=== PATIENT | female | born 1955 | race Caucasian/White ===

== ENCOUNTER 2017-09-30 12:50 | Outpatient (CLI) | payer OTHER ==
[2017-09-30 18:08] LABS: BASOPHILS # (AUTO) 0.1 10^3/uL (0.0-0.1); EOSINOPHILS # (AUTO) 0.2 10^3/uL (0.0-0.7); EOSINOPHILS % (AUTO) 2.3 %; HCT - HEMATOCRIT 45.8 % (37.0-47.0); MEAN CORPUSCULAR HEMOGLOBIN 29.1 pg (27.0-31.0); MEAN CORPUSCULAR HGB CONC 32.7 g/dL (32.0-36.0); MEAN CORPUSCULAR VOLUME 88.9 fL (81.0-99.0); MEAN PLATELET VOLUME 6.9 fL (7.9-10.8); MONOCYTES # (AUTO) 0.7 10^3/uL (0.0-1.0); MONOCYTES % (AUTO) 9.3 %; NEUTROPHILS # (AUTO) 5.7 10^3/uL (1.5-6.6); NEUTROPHILS % (AUTO) 74.4 %; NUCLEATED RED BLOOD CELLS AUTO 0.1 /100WBC; RED BLOOD COUNT 5.15 10^6/uL (4.20-5.40); RED CELL DISTRIBUTION WIDTH 14.4 % (12.0-15.0); UNCORRECTED WHITE BLOOD COUNT 7.6 x10^3/uL; WHITE BLOOD COUNT 7.6 x10^3/uL (4.8-10.8)
[2017-09-30 18:38] LABS: THYROID STIMULATING HORMONE 3.46 uIU/mL (0.34-5.60)
[2017-09-30 18:39] LABS: ALBUMIN/GLOBULIN RATIO 1.1 (1.0-2.2); BILIRUBIN,TOTAL 0.2 mg/dL (0.2-1.0); BUN - BLOOD UREA NITROGEN 20 mg/dL (6-20); CALCIUM 8.8 mg/dL (8.5-10.3); CARBON DIOXIDE - CO2 29 mmol/L (21-32); CHLORIDE 100 mmol/L (101-111); CHOL/HDL RATIO 5.8 (<4.4); CHOLESTEROL 244 mg/dL; CREATININE 0.9 mg/dL (0.4-1.0); GFR - MDRD 63 (>89); GLUCOSE 101 mg/dL (70-100); HDL CHOLESTEROL 42 mg/dL; IRON 69 ug/dL (28-170); LDL/HDL RATIO 3.5 (<4.4); POTASSIUM 3.8 mmol/L (3.5-5.0); SODIUM 137 mmol/L (135-145); TOTAL IRON BINDING CAPACITY 489 ug/dL (250-450); TOTAL PROTEIN 6.8 g/dL (6.7-8.2); TRANSFERRIN 349 mg/dL (192-382); TRIGLYCERIDES 276 mg/dL; VLDL CHOLESTEROL 55 mg/dL
[2017-09-30 18:43] LABS: FERRITIN 45.5 ng/mL (11.0-306.8)
== END 2017-09-30 12:51 | disposition home or self-care (01) ==
LOC: LAB.F 12:50
PROVIDERS: ATTEND Physician Assistant Medical
DX: Z00.00 Encounter for general adult medical examination without abnormal findings (principal); E55.9 Vitamin D deficiency, unspecified; E61.1 Iron deficiency; D64.9 Anemia, unspecified; E03.9 Hypothyroidism, unspecified
CPT/HCPCS: 36415; 80053; 80061; 82306; 82728; 83540; 84443; 84466; 85025

== ENCOUNTER 2019-01-25 09:14 | Outpatient (CLI) | payer OTHER ==
[2019-01-25 17:40] LABS: BASOPHILS % (AUTO) 1.3 %; EOSINOPHILS # (AUTO) 0.1 10^3/uL (0.0-0.7); EOSINOPHILS % (AUTO) 3.9 %; HGB - HEMOGLOBIN 14.3 g/dL (12.0-16.0); LYMPHOCYTES # (AUTO) 0.7 10^3/uL (1.5-3.5); LYMPHOCYTES % (AUTO) 19.9 %; MEAN CORPUSCULAR HEMOGLOBIN 29.3 pg (27.0-31.0); MEAN CORPUSCULAR HGB CONC 32.6 g/dL (32.0-36.0); MEAN CORPUSCULAR VOLUME 89.8 fL (81.0-99.0); MONOCYTES # (AUTO) 0.4 10^3/uL (0.0-1.0); MONOCYTES % (AUTO) 10.5 %; NEUTROPHILS # (AUTO) 2.2 10^3/uL (1.5-6.6); NEUTROPHILS % (AUTO) 64.4 %; PLT - PLATELET COUNT 314 10^3/uL (130-450); RED BLOOD COUNT 4.88 10^6/uL (4.20-5.40); RED CELL DISTRIBUTION WIDTH 14.5 % (12.0-15.0); WHITE BLOOD COUNT 3.5 x10^3/uL (4.8-10.8)
[2019-01-25 18:12] LABS: ALBUMIN 3.2 g/dL (3.2-5.5); ALBUMIN/GLOBULIN RATIO 1.1 (1.0-2.2); BILIRUBIN,TOTAL 0.6 mg/dL (0.2-1.0); CALCIUM 8.5 mg/dL (8.5-10.3); CREATININE 0.8 mg/dL (0.4-1.0)
== END 2019-01-25 09:15 | disposition home or self-care (01) ==
LOC: LAB.F 09:14
PROVIDERS: ATTEND Physician Assistant Medical
DX: E03.9 Hypothyroidism, unspecified (principal); D64.9 Anemia, unspecified
CPT/HCPCS: 36415; 80053; 84443; 85025

== ENCOUNTER 2019-02-27 07:37 | Outpatient (CLI) | payer OTHER | END 2019-02-27 07:38 | disposition critical access hospital (66) | LOC: EMS 07:37 | PROVIDERS: ATTEND Surgery | DX: R10.9 Unspecified abdominal pain (principal); R11.0 Nausea; R14.0 Abdominal distension (gaseous) | CPT/HCPCS: A0425; A0427 ==

== ENCOUNTER 2019-02-27 08:14 | Observation (INO) | payer OTHER ==
[2019-02-27 08:36] LABS: BASOPHILS % (AUTO) 0.4 %; EOSINOPHILS % (AUTO) 0.4 %; HGB - HEMOGLOBIN 12.4 g/dL (12.0-16.0); LYMPHOCYTES # (AUTO) 0.7 10^3/uL (1.5-3.5); LYMPHOCYTES % (AUTO) 7.5 %; MEAN CORPUSCULAR HEMOGLOBIN 29.4 pg (27.0-31.0); MEAN CORPUSCULAR HGB CONC 32.9 g/dL (32.0-36.0); MEAN CORPUSCULAR VOLUME 89.6 fL (81.0-99.0); MEAN PLATELET VOLUME 6.5 fL (7.9-10.8); MONOCYTES # (AUTO) 0.5 10^3/uL (0.0-1.0); MONOCYTES % (AUTO) 5.8 %; NEUTROPHILS # (AUTO) 7.5 10^3/uL (1.5-6.6); NEUTROPHILS % (AUTO) 85.9 %; PLT - PLATELET COUNT 343 10^3/uL (130-450); RED BLOOD COUNT 4.21 10^6/uL (4.20-5.40); RED CELL DISTRIBUTION WIDTH 13.8 % (12.0-15.0); WHITE BLOOD COUNT 8.7 x10^3/uL (4.8-10.8)
[2019-02-27 08:57] LABS: ALBUMIN 2.7 g/dL (3.2-5.5); ALBUMIN/GLOBULIN RATIO 0.8 (1.0-2.2); BILIRUBIN,TOTAL 0.3 mg/dL (0.2-1.0); CALCIUM 8.3 mg/dL (8.5-10.3); CREATININE 0.9 mg/dL (0.4-1.0); TOTAL PROTEIN 5.9 g/dL (6.7-8.2)
--- NOTE | 2019-02-27 09:05 | ED Physician Documentation ---
PD HPI ABD PAIN - Stated complaint Stated Complaint: ABD PX - Chief complaint Chief Complaint: Abd Pain - History obtained from History obtained from: Patient - History of Present Illness Timing - onset: Today (With abdominal distention, pain and vomiting.), How many days ago (She had had several days of Crohn's type symptoms with some cramping pain in the lower abdomen, loose to watery stool over baseline and some blood in her stool. She states that was occurring for several days and was actually improved yesterday. She then had the general abdominal pain and distention today.) Timing - duration: Days (1) Timing - details: Abrupt onset, Still present Quality: Aching, Fullness/distended, Pain Location: All over / everywhere Associated symptoms: Nausea, Vomiting, Hematochezia (For several days mildly), Loss of appetite. No: Near syncope / syncope Similar symptoms before: Diagnosis (current symptoms today are similar to prior SBO years ago.) Recently seen: Not recently seen (She states have been doing pretty well recently with just the mesalamine for her Crohn's.) Review of Systems Constitutional: reports: Fatigue. denies: Fever, Chills, Myalgias Nose: denies: Rhinorrhea / runny nose, Congestion Throat: denies: Sore throat Cardiac: denies: Chest pain / pressure Respiratory: denies: Dyspnea, Cough GI: reports: Abdominal Pain, Abdominal Swelling, Nausea, Vomiting, Diarrhea, Bloody / black stool. denies: Constipation, Hematemesis : denies: Dysuria, Frequency Skin: denies: Rash, Lesions Musculoskeletal: reports: Back pain (chronic) Neurologic: reports: Generalized weakness. 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 Her bushel worker that steroids are okay.) GI: Crohn's disease - Past Surgical History Past Surgical History: Yes HEENT: Tonsil/Adenoidectomy - Present Medications Home Medications: Ambulatory Orders Medication Instructions Recorded Confirmed Amitriptyline [Elavil] 10 mg PO QPM 02/27/19 02/27/19 Gabapentin 100 mg PO 02/27/19 Levothyroxine [Synthroid] 50 mcg PO QDAC 02/27/19 02/27/19 Mesalamine [Lialda] 1.2 gm PO 02/27/19 - Allergies Allergies/Adverse Reactions: Allergies Allergy/AdvReac Type Severity Reaction Status Date / Time codeine AdvReac Intermediate Nausea Verified 02/27/19 08:24 - Social History Does the pt smoke?: No Smoking Status: Never smoker Does the pt drink ETOH?: No - Immunizations Immunizations are current?: Yes PD ED PE NORMAL - Vitals Vital signs reviewed: Yes - General General: Alert and oriented X 3, Well developed/nourished, Other (She appears uncomfortable with abdominal distention and nausea. She is having generalized abdominal pain with tenderness.) - HEENT HEENT: Pharynx benign - Neck Neck: Supple, no meningeal sign, No adenopathy - Cardiac Cardiac: RRR, No murmur - Respiratory Respiratory: Clear bilaterally - Abdomen Abdomen: No organomegaly, Other (Bowel sounds are generally hyperactive [place] cially in the mid abdomen. She has moderate distention with tenderness in the mid abdomen as well. There is tenderness to percussion and some slight rebound tenderness.) - Female Female : Deferred - Rectal Rectal: Deferred - Back Back: No CVA TTP - Derm Derm: Warm and dry. No: Normal color (pale) - Extremities Extremities: No deformity, No tenderness to palpate, Normal ROM s pain, No edema, No calf tenderness / cord - Neuro Neuro: Alert and oriented X 3, No motor deficit, Normal speech Results - Vitals Vitals: Vital Signs - 24 hr 02/27/19 02/27/19 02/27/19 08:21 09:42 11:23 Temperature 36.2 C L 36.2 C L Heart Rate 58 L 64 58 L Respiratory 22 14 18 Rate Blood Pressure 106/53 L 98/55 L 103/64 O2 Saturation 100 97 96 02/27/19 13:07 Temperature 36.8 C Heart Rate 60 Respiratory 15 Rate Blood Pressure 113/62 O2 Saturation 99 Oxygen O2 Source Room air - Labs Labs: Laboratory Tests 02/27/19 02/27/19 02/27/19 08:20 08:20 12:05 WBC 8.7 RBC 4.21 Hgb 12.4 Hct 37.8 MCV 89.6 MCH 29.4 MCHC 32.9 RDW 13.8 Plt Count 343 MPV 6.5 L Neut # (Auto) 7.5 H Lymph # (Auto) 0.7 L [place] # (Auto) 0.5 Eos # (Auto) 0.0 Baso # (Auto) 0.0 Absolute Nucleated RBC 0.00 Nucleated RBC % 0.0 Sodium 138 Potassium 3.6 Chloride 101 Carbon Dioxide 28 Anion Gap 9.0 BUN 15 Creatinine 0.9 Estimated GFR (MDRD) 63 L Glucose 167 H Calcium 8.3 L Total Bilirubin 0.3 AST 46 H ALT 78 H Alkaline Phosphatase 206 H Total Protein 5.9 L Albumin 2.7 L Globulin 3.2 Albumin/Globulin Ratio 0.8 L Lipase 44 Urine Color YELLOW Urine Clarity CLEAR Urine pH 7.5 Ur Specific [place] 1.010 Urine Protein NEGATIVE Urine Glucose (UA) NEGATIVE Urine Ketones NEGATIVE Urine Occult Blood NEGATIVE Urine Nitrite NEGATIVE Urine Bilirubin NEGATIVE Urine Urobilinogen 0.2 (NORMAL) Ur Leukocyte Esterase NEGATIVE Ur Microscopic Review NOT INDICATED Urine Culture Comments NOT INDICATED PD MEDICAL DECISION MAKING - ED course Complexity details: d/w garden consultant (I talked with Dr. Villa who is the patient's bushel worker. He states steroids are appropriate to use. On an outpatient basis he would start her at 40 mg of prednisone tapering down to off over the course of 2-3 weeks at 5 mg intervals. He did not see the a value and having her in [place] versus our hospital regarding the bowel obstruction.), other (Consulted Dr. Huitron on-call for surgery regarding the bowel obstruction. He refers it to medicine and he will consult on the case.)
[2019-02-27] MEDS ORDERED: SODIUM CHLORIDE 0.9% 1,000 ML IV ONE (09:46)
[2019-02-27] MEDS ORDERED: ONDANSETRON 4 MG/2 ML VIAL IVP STA ×2 (09:46→11:50)
[2019-02-27] MEDS ORDERED: MORPHINE 10 MG/ML VIAL IVP STA (09:47)
[2019-02-27] MEDS ORDERED: FAMOTIDINE 20 MG/2 ML VIAL IVP STA (09:48)
[2019-02-27] MEDS ORDERED: IOVERSOL 320 100 ML VIAL IVP ONE ×2 (09:57→16:57)
--- NOTE | 2019-02-27 11:16 | CT Report ---
Reason: abd distension and pain; concern for SBO Procedure Date: 02/27/2019 Accession Number: [id number] / [id number] Procedure: CT - Abdomen/Pelvis W CPT Code: FULL RESULT: EXAM: CT ABDOMEN AND PELVIS EXAM DATE: 02/27/2019 10:21 AM. CLINICAL HISTORY: Abdominal distension and pain; concern for small bowel obstruction (SBO). History of Crohn's disease. COMPARISONS: None. TECHNIQUE: Routine helical CT imaging was performed through the abdomen and pelvis. IV contrast: OPTI 320 100 mL. Enteric contrast: No. Reconstructions: Coronal and sagittal. In accordance with CT protocol optimization, one or more of the following dose reduction techniques were utilized for this exam: automated exposure control, adjustment of mA and/or KV based on patient size, or use of iterative reconstructive technique. FINDINGS: Lung Bases: Bibasilar scar/atelectasis. Heart is upper normal in size. Small hiatal hernia. Liver: Mild fatty liver. Patent portal vein. Small volume of perihepatic free fluid. Gallbladder/Bile Ducts: Calcified gallstones present no pericholecystic edema. No biliary ductal dilatation. Spleen: Normal. Pancreas: Normal. Adrenal Glands: Normal. Kidneys: Kidneys enhance symmetrically. No hydronephrosis. No nephrolithiasis. Peritoneal Cavity/Bowel: Stomach is mildly to moderately distended and unremarkable. Proximal small bowel is not significantly dilated. There is a segment of small bowel in the left mid upper abdomen focally dilated with mesenteric edema with tight angulation of distal and proximal small bowel loops b both of which are tightly angulated angulated with the dilated bowel loops splayed in the mid abdomen with mesenteric edema focally seen. There is a slightly more distal small bowel anastomosis. There is thickening, enhancement and nodularity of mid and distal ileum extending to the ileocecal valve with some enhancement and thickening of segments of the colon particularly proximally, likely due to patient's history of Crohn's disease. There is adjacent mild mesenteric edema. There is is free fluid along the liver and in the right lower quadrant. No free air is identified. Absent appendix. No diverticulitis. Pelvic Organs: Small to moderate volume pelvic free fluid. Calcified uterine myoma noted extending into the right pelvis. No pelvic adenopathy. Urinary bladder is unremarkable. Vasculature: Vascular calcifications. No aneurysm. Bones: Degenerative changes of the lower thoracic and lumbar spine. Degenerative changes. Other: Lumbar facet arthropathy. Grade 1 anterolisthesis of L4 on L5. Degenerative changes of both hip joints. IMPRESSION: 1. Small bowel obstruction largely focally present in the left mid upper abdomen involving focal mid proximal small bowel loops with an appearance most likely representing a closed loop obstruction. 2. Mucosal thickening and enhancement of the mid distal ileum and portions of the proximal colon likely related to the patient's history of Crohn's disease. Adjacent inflammatory changes noted. No adjacent fluid collections. 3. Small volume of perihepatic, right lower quadrant, and pelvic free fluid. 4. Cholelithiasis. No CT evidence of cholecystitis. [facility] The call report notification system was initiated by Dr. Volodymyr Herrera at 11:06 AM on 02/27/2019. The above call report findings were discussed with Juan Chua by Dr. Volodymyr Herrera at 11:11 AM on 02/27/2019.
[2019-02-27] MEDS ORDERED: fentaNYL 100 MCG/2 ML VIAL IVP STA (11:50)
[2019-02-27 12:09] LABS: BILIRUBIN,URINE NEGATIVE (NEGATIVE); GLUCOSE, URINE (UA) NEGATIVE (NEGATIVE); KETONES,URINE (UA) NEGATIVE (NEGATIVE); LEUKOCYTE ESTERASE, URINE NEGATIVE (NEGATIVE); NITRITE,URINE NEGATIVE (NEGATIVE); OCCULT BLOOD,URINE NEGATIVE (NEGATIVE); PH,URINE 7.5 PH (5.0-7.5); PROTEIN,URINE NEGATIVE (NEGATIVE); UROBILINOGEN,URINE 0.2 (NORMAL) E.U./dL (NORMAL)
[2019-02-27 12:14] LABS: CLARITY,URINE CLEAR (CLEAR)
[2019-02-27] MEDS ORDERED: LIDOCAINE VISCOUS 2% 15 ML UDC MM STA (12:48)
[2019-02-27] MEDS ORDERED: SODIUM CHLORIDE FLUSH 0.9% 10 ML SYRINGE IVP PRN (13:11)
[2019-02-27] MEDS ORDERED: ONDANSETRON 4 MG/2 ML VIAL IVP PRN (13:11)
[2019-02-27] MEDS ORDERED: PROCHLORPERAZINE 10 MG/2 ML VIAL IVP PRN (13:11)
[2019-02-27] MEDS ORDERED: MORPHINE 2 MG/ML SYRINGE IVP PRN (13:11)
--- NOTE | 2019-02-27 13:21 | HISTORY & PHYSICAL EXAMINATION ---
Chief Complaint - Chief Complaint Chief Complaint: Nausea episodic vomiting with acute onset of bloating, crampy abd pain Abdominal Pain HPI - Admitted From Admitted from: ED - History Obtained From Records Reviewed: RN notes reviewed, Old records reviewed History obtained from: Patient - History of Present Illness HPI Comment/Other: Kellee Mcgill he is a pleasant 63-year-old with a history of chronic Crohn's disease for which she sees a Dr. Villa her primarygastroenterologist in [place] for which she is on chronic as a thio purine and was recently getting over her previous "flare" of Crohn's disease where she had stool in her blood with crampy abdominal pain with acute onset of bloating nausea and episodic vomiting. Patient presented with an acute closed-loop small bowel obstruction to the mid proximal small bowel loops in the left mid upper abdomen seen on CT abdomen pelvis in the emergency department in addition cholelithiasis without acute cholecystitis was seen in the setting of elevated transaminitis. Patient in addition had mid distal ileum and proximal colon mucosal thickening consistent with Crohn's disease. General surgery was consulted 's office who advised on NG tube placement. Primary steam and power superintendent Dr. Villa in [place] advised on placing patient on bowel rest IV steroids and IV fluids and likely continuing on a prednisone taper for approximately 4 weeks. Patient on labs appear to be with no anemias with okay CBC and lites were within normal limits with good creatinine function renal function and hyperglycemia seen. PMH/PSH - Past Medical History GI: positive: Crohn's disease - Past Surgical History HEENT: positive: Tonsil/Adenoidectomy Social & Family Hx - Social History Does the pt smoke?: No Smoking Status: Never smoker Does the pt drink ETOH?: No Meds/Allgy - Home Medications Home Medications: Ambulatory Orders Medication Instructions Recorded Confirmed Amitriptyline [Elavil] 10 mg PO QPM 02/27/19 02/27/19 Gabapentin 100 mg PO 02/27/19 Levothyroxine [Synthroid] 50 mcg PO QDAC 02/27/19 02/27/19 Mesalamine [Lialda] 1.2 gm PO 02/27/19 - Allergies Allergies/Adverse Reactions: Allergies Allergy/AdvReac Type Severity Reaction Status Date / Time codeine AdvReac Intermediate Nausea Verified 02/27/19 08:24 Review of Systems - All Other Systems All Other Systems: reports: Reviewed and negative Prior Level of Functionality: Patient is with good functional capacity and performs home ADLs well Exam - Vital Signs Reviewed Vital Signs: Yes Vital Signs: Vital Signs x48h Temp Pulse Resp BP Pulse Ox 02/27/19 13:07 36.8 C 60 15 113/62 99 02/27/19 11:23 58 L 18 103/64 96 02/27/19 09:42 36.2 C L 64 14 98/55 L 97 02/27/19 08:21 36.2 C L 58 L 22 106/53 L 100 - Physical Exam General Appearance: positive: No acute distress, Alert Eyes Bilateral: positive: Normal inspection, PERRL, EOMI ENT: positive: ENT inspection nml, Pharynx nml, Dry mucous membranes Neck: positive: Nml inspection, Thyroid nml, No JVD, Trachea midline Respiratory: positive: Chest non-tender, No respiratory distress Cardiovascular: positive: Regular rate & rhythm, No murmur, No gallop Peripheral Pulses: positive: 2+ Abdomen: positive: No organomegaly, Tenderness (Lower quadrants), Guarding, Abn ml bowel sounds, Other (Tympany on disc and distention) Skin: positive: Color nml, No rash, Warm Extremities: positive: Non-tender, Full ROM, Nml appearance Neurologic/Psychiatric: positive: Oriented x3, CN's nml (2-12) Results - Lab Results Lab results reviewed: Yes Fish Bones: 02/27/19 08:20 02/27/19 08:20 Other Lab Results: Lab Results x24hrs 02/27/19 02/27/19 02/27/19 Range/Units 12:05 08:20 08:20 WBC 8.7 (4.8-10.8) x10^3/uL RBC 4.21 (4.20-5.40) 10^6/uL Hgb 12.4 (12.0-16.0) g/dL Hct 37.8 (37.0-47.0) % MCV 89.6 (81.0-99.0) fL MCH 29.4 (27.0-31.0) pg MCHC 32.9 (32.0-36.0) g/dL RDW 13.8 (12.0-15.0) % Plt Count 343 (130-450) 10^3/uL MPV 6.5 L (7.9-10.8) fL Neut # (Auto) 7.5 H (1.5-6.6) 10^3/uL Lymph # (Auto) 0.7 L (1.5-3.5) 10^3/uL [place] # (Auto) 0.5 (0.0-1.0) 10^3/uL Eos # (Auto) 0.0 (0.0-0.7) 10^3/uL Baso # (Auto) 0.0 (0.0-0.1) 10^3/uL Absolute Nucleated RBC 0.00 x10^3/uL Nucleated RBC % 0.0 /100WBC Sodium 138 (135-145) mmol/L Potassium 3.6 (3.5-5.0) mmol/L Chloride 101 (101-111) mmol/L Carbon Dioxide 28 (21-32) mmol/L Anion Gap 9.0 (6-13) BUN 15 (6-20) mg/dL Creatinine 0.9 (0.4-1.0) mg/dL Estimated GFR (MDRD) 63 L (>89) Glucose 167 H (70-100) mg/dL Calcium 8.3 L (8.5-10.3) mg/dL Total Bilirubin 0.3 (0.2-1.0) mg/dL AST 46 H (10-42) IU/L ALT 78 H (10-60) IU/L Alkaline Phosphatase 206 H (42-121) IU/L Total Protein 5.9 L (6.7-8.2) g/dL Albumin 2.7 L (3.2-5.5) g/dL Globulin 3.2 (2.1-4.2) g/dL Albumin/Globulin Ratio 0.8 L (1.0-2.2) Lipase 44 (22-51) U/L Urine Color YELLOW Urine Clarity CLEAR (CLEAR) Urine pH 7.5 (5.0-7.5) PH Ur Specific [place] 1.010 (1.002-1.030) Urine Protein NEGATIVE (NEGATIVE) mg/dL Urine Glucose (UA) NEGATIVE (NEGATIVE) mg/dL Urine Ketones NEGATIVE (NEGATIVE) mg/dL Urine Occult Blood NEGATIVE (NEGATIVE) Urine Nitrite NEGATIVE (NEGATIVE) Urine Bilirubin NEGATIVE (NEGATIVE) Urine Urobilinogen 0.2 (NORMAL) (NORMAL) E.U./dL Ur Leukocyte Esterase NEGATIVE (NEGATIVE) Ur Microscopic Review NOT INDICATED Urine Culture Comments NOT INDICATED - Diagnostic Imaging Results Diagnostic Imaging Results: positive: Final report reviewed - EKG Results EKG Interpreted Independently: No Sepsis Event Note (H) - Evaluation Current Stage of Sepsis: Ruled out Impression/Plan - Problem List Problem List: 1. Acute small bowel obstruction -CT abdomen pelvis confirms a small bowel obstruction in the left mid upper abdomen involving mid proximal small bowel loop with appearance likely representing a closed loop obstruction. In addition patient has cholelithiasis without evidence of cholecystitis. Mucosal thickening in the mid distal ileum/proximal colon in keeping with Crohn's disease. We will continue with IV steroids, bowel rest, pain control IV fluids. Will perform a Gastrografin challenge and evaluate for the need for surgery. At this time patient was unable to have an NG tube placed after 2 attempts. We will reevaluate the need for NG tube placement with intermittent suction. 2. Acute on chronic Crohn's disease with recent flare -IV steroids for now. Patient was on mesalamine in the past. As a fire print was discontinued due to immunosuppression and herpes zoster's with associated myelitis and has post-herpetic neuralgia at this time. Neurontin is also been held since its oral. If NG tube is placed and may be we can dispense per NG tube. 3. Transaminitis secondary to inflammatory response from Crohn's -Likely as a response of inflammatory from her Crohn's, CRP to follow, lipase was normal, there is cholecystolithiasis present on CT abdomen pelvis with no evidence of acute cholecystitis. IV steroids should be alleviated somewhat. 4. Postherpetic neuralgia -Patient unable to have oral medications dispensed due to n.p.o. status. We will treat with IV fentanyl as needed 5. Abdominal pain secondary to above -IV fentanyl, bowel rest, IV fluids 6. Hyperglycemia likely secondary to steroids -Hemoglobin A1c to follow, Expected elevated sugars while being on IV Solu- Medrol 7. DVT/GI ppx. -She will be on IV Protonix, Heparin Lovenox held due to recent bleeding, SCD boots only. CODE STATUS: Full code Core Measures - Anticipated LOS I expect patient to be DC'd or transferred within 96 hours.: Yes - DVT/VTE - Prophylaxis VTE/DVT Device ordered at admit?: Yes VTE/DVT Prophylaxis med ordered at admit?: Yes - Stroke - Rehab Assessment Rehab services assessment to be ordered?: No Not Ordered - Medical Reason: Not indicated - AMI - Statin at Admit Aspirin Prescribed on Admit: No Not Ordered - Medical Reason: Contraindicated (Bloody stools with history of Crohn's disease)
[2019-02-27] MEDS ORDERED: fentaNYL 250 MCG/5 ML VIAL IVP PRN (13:52)
[2019-02-27] MEDS ORDERED: LORazepam 2 MG/ML VIAL IVP PRN (13:52)
[2019-02-27] MEDS: SODIUM CHLORIDE FLUSH 0.9% 10 ML SYRINGE IVP SCH ×2 (14:08→23:39)
[2019-02-27] MEDS ORDERED: SODIUM CHLORIDE FLUSH 0.9% 10 ML SYRINGE ONE (14:09)
[2019-02-27] MEDS ORDERED: fentaNYL 100 MCG/2 ML VIAL IVP PRN (14:10)
[2019-02-27] MEDS: methylPREDNISolone SUCCINATE 40 MG/ML VIAL IVP SCH ×2 (14:24→22:11)
[2019-02-27] MEDS: LACTATED RINGERS 1,000 ML IV SCH ×2 (14:56→22:11)
[2019-02-27] MEDS: PANTOPRAZOLE 40 MG VIAL IVP SCH (15:18)
--- NOTE | 2019-02-27 15:46 | XRAY Report ---
Reason: NG tube placed Procedure Date: 02/27/2019 Accession Number: [id number] / [id number] Procedure: XR - Chest 1 View X-Ray CPT Code: 98009 FULL RESULT: EXAM: CHEST RADIOGRAPHY EXAM DATE: 02/27/2019 03:21 PM. CLINICAL HISTORY: NG tube placed. COMPARISON: None. TECHNIQUE: 1 view. FINDINGS: Lungs/Pleura: No focal opacities evident. No pleural effusion. No pneumothorax. Mediastinum: Within exam limitations, the cardiomediastinal contour is normal. Other: The enteric tube terminates below the diaphragm with the sidehole projecting over the left upper quadrant and the distal tip inferior of the confines of the radiograph. IMPRESSION: Appropriate NG tube positioning. [facility]
--- NOTE | 2019-02-27 18:31 | XRAY Report ---
Reason: SMALL BOWEL OBST - GASTROGRAFIN CHALLENGE Procedure Date: 02/27/2019 Accession Number: [id number] / [id number] Procedure: XR - No-Charge 1V Abdomen CPT Code: 23845 FULL RESULT: EXAM: ABDOMEN RADIOGRAPHY EXAM DATE: 02/27/2019 03:35 PM. CLINICAL HISTORY: SMALL BOWEL obstruction - GASTROGRAFIN CHALLENGE. COMPARISON: ABDOMEN 1 VIEW 02/27/2019 4:22 PM. TECHNIQUE: 1 view. FINDINGS AND IMPRESSION: There is a feeding tube in the stomach. Contrast has been given through the feeding tube and there is contrast seen in the stomach. There is a nonobstructive bowel gas pattern. 3 moderate sized gallstones are noted. Small amount of contrast could be in the proximal duodenum. [facility]
--- NOTE | 2019-02-27 20:17 | XRAY Report ---
Reason: SMALL BOWEL OBST - GASTROGRAFIN CHALLENGE Procedure Date: 02/27/2019 Accession Number: [id number] / [id number] Procedure: XR - No-Charge 1V Abdomen CPT Code: 73965 FULL RESULT: EXAM: ABDOMEN RADIOGRAPHY EXAM DATE: 02/27/2019 04:51 PM. CLINICAL HISTORY: SMALL BOWEL obstruction - GASTROGRAFIN CHALLENGE. COMPARISON: CT abdomen pelvis 02/27/19. TECHNIQUE: 2 views. FINDINGS AND IMPRESSION: Nasogastric tube with the tip in the body of the stomach. Nonobstructive nonspecific bowel gas pattern. There is still excretion of contrast seen from both kidneys with mild persistent nephrograms, where renal insufficiency could be present. Correlate with the creatinine. There is contrast in the bladder. Three moderate sized gallstones. Heterogeneous calcifications seen in the right side of the bladder. [facility]
--- NOTE | 2019-02-27 21:21 | XRAY Report ---
Reason: SMALL BOWEL OBST - GASTROGRAFIN CHALLENGE Procedure Date: 02/27/2019 Accession Number: [id number] / [id number] Procedure: XR - No-Charge 1V Abdomen CPT Code: 21075 FULL RESULT: EXAM: ABDOMEN RADIOGRAPHY EXAM DATE: 02/27/2019 08:59 PM. CLINICAL HISTORY: SMALL BOWEL obstruction - GASTROGRAFIN CHALLENGE. COMPARISON: ABDOMEN 1 VIEW 02/27/2019 4:34 PM. TECHNIQUE: 2 views. FINDINGS: Nasogastric tube is again seen in the distal stomach. Nonobstructive bowel gas pattern. Gastrografin oral contrast is seen throughout the colon. No dilated bowel loops are seen. No evidence for bowel obstruction. IMPRESSION: Gastrografin oral contrast is seen throughout the colon. No dilated bowel loops are seen. No evidence for bowel obstruction. [facility]
[2019-02-27] MEDS ORDERED: ACETAMINOPHEN 325 MG TABLET PO PRN (21:38)
[2019-02-27] MEDS ORDERED: ACETAMINOPHEN 1,000 MG/100 ML 100 ML IV PRN (21:50)
--- NOTE | 2019-02-27 22:04 | CONSULTATION NOTE ---
Referring Provider Name of Referring Provider:: Dr. Juan Chua Consult Date: 02/27/19 Chief Complaint - Chief Complaint Chief Complaint: Abdominal pain History of Present Illness - Admitted From Admitted From:: [facility] ED - History Obtained From Records Reviewed: Yes History obtained from: Patient, chart, and Dr. Chua Exam Limitations: None - History of Present Illness HPI Comment/Other: This very pleasant 63 year old female is evaluated in room 2303 at [facility] ICU at the request of Dr. Juan Chua. The patient has had the diagnosis of Crohns disease since 8th grade and is being followed by her physical therapy coordinator at [facility] for this. 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 She has colonoscopies every 2 years due to the increased risk of malignancy. She states that she feels much better now with NG in place. She has had previous operations for bowel obstruction bu the nature of those operations is unknown. I am called to evaluate her abdominal pain and nausea after a CT scan showed the possibility of a "closed loop small bowel obstruction." History - Past Medical History Cardiovascular: reports: None Respiratory: reports: None Neuro: reports: Other GI: reports: Crohn's disease - Past Surgical History HEENT: reports: Tonsil/Adenoidectomy Meds/Allgy - Home Medications Home Medications: Ambulatory Orders Medication Instructions Recorded Confirmed Amitriptyline [Elavil] 10 mg PO QPM 02/27/19 02/27/19 Gabapentin 100 mg PO DAILY 02/27/19 02/27/19 Gabapentin 300 mg PO DAILY PM 02/27/19 02/27/19 Levothyroxine [Synthroid] 50 mcg PO QDAC 02/27/19 02/27/19 Mesalamine [Lialda] 1.2 gm PO 02/27/19 - Allergies Allergies/Adverse Reactions: Allergies Allergy/AdvReac Type Severity Reaction Status Date / Time codeine AdvReac Intermediate Nausea Verified 02/27/19 08:24 Review of Systems - Constitutional Constitutional: denies: Fatigue, Fever, Chills, Malaise - Eyes Eyes: denies: Pain - Ears, Nose & Throat Ears, Nose & Throat: denies: Ear pain - Cardiovascular Cariovascular: denies: Irregular heart rate - Respiratory Respiratory: denies: Cough - Gastrointestinal Gastrointestinal: reports: Abdominal pain (Markedly improved.), Nausea - Musculoskeletal Musculoskeletal: denies: Muscle pain, Back pain - Integumentary Integumentary: denies: Rash - Neurological Neurological: denies: General weakness, Focal weakness - Psychiatric Psychiatric: denies: Depression Exam - Vital Signs Reviewed Vital Signs: Yes Vital Signs: Vital Signs x48h Temp Pulse Pulse Pulse Resp BP BP 02/27/19 20:25 36.4 C L 68 16 109/49 L 02/27/19 18:28 02/27/19 18:25 65 11 L 107/53 L 02/27/19 17:50 02/27/19 17:00 58 L 12 02/27/19 16:55 57 L 13 02/27/19 16:50 60 14 02/27/19 16:45 56 L 14 02/27/19 16:40 64 16 02/27/19 16:35 63 15 02/27/19 16:30 67 16 02/27/19 16:25 54 L 12 02/27/19 16:20 55 L 11 L 02/27/19 16:15 54 L 11 L 02/27/19 16:10 59 L 15 02/27/19 16:05 59 L 12 02/27/19 16:00 61 58 L 9 L 02/27/19 15:55 58 L 15 02/27/19 15:50 60 13 02/27/19 15:45 57 L 11 L 02/27/19 15:44 58 L 12 02/27/19 15:40 60 10 L 02/27/19 15:35 63 11 L 02/27/19 15:30 60 11 L 02/27/19 15:25 58 L 10 L 02/27/19 15:20 62 18 02/27/19 15:15 58 L 12 02/27/19 15:10 57 L 13 02/27/19 15:05 61 20 02/27/19 15:00 63 18 02/27/19 14:55 61 16 02/27/19 14:50 61 15 02/27/19 14:46 67 22 137/65 H 02/27/19 14:45 67 16 02/27/19 14:40 64 14 02/27/19 14:35 59 L 15 02/27/19 14:31 63 17 02/27/19 14:30 36.1 C L 63 64 15 110/67 02/27/19 14:29 63 13 02/27/19 14:25 58 L 17 02/27/19 14:20 61 17 02/27/19 14:17 63 14 133/67 H 02/27/19 14:16 65 16 02/27/19 14:15 71 19 02/27/19 14:10 61 16 02/27/19 14:05 59 L 15 02/27/19 14:00 59 L 16 BP Pulse Ox 02/27/19 20:25 94 02/27/19 18:28 95 02/27/19 18:25 93 02/27/19 17:50 97 02/27/19 17:00 02/27/19 16:55 02/27/19 16:50 02/27/19 16:45 02/27/19 16:40 02/27/19 16:35 02/27/19 16:30 02/27/19 16:25 02/27/19 16:20 02/27/19 16:15 02/27/19 16:10 02/27/19 16:05 02/27/19 16:00 93 02/27/19 15:55 02/27/19 15:50 02/27/19 15:45 02/27/19 15:44 137/65 H 96 02/27/19 15:40 02/27/19 15:35 02/27/19 15:30 02/27/19 15:25 02/27/19 15:20 02/27/19 15:15 02/27/19 15:10 02/27/19 15:05 02/27/19 15:00 02/27/19 14:55 02/27/19 14:50 02/27/19 14:46 02/27/19 14:45 02/27/19 14:40 02/27/19 14:35 02/27/19 14:31 02/27/19 14:30 133/67 H 94 02/27/19 14:29 02/27/19 14:25 02/27/19 14:20 02/27/19 14:17 02/27/19 14:16 02/27/19 14:15 02/27/19 14:10 02/27/19 14:05 04/08/19 14:00 - Physical Exam General Appearance: positive: No acute distress Eyes Bilateral: positive: No lid inflammation, Conjunctivae nml, No scleral icterus ENT: positive: No signs of dehydration Neck: positive: Trachea midline Respiratory: positive: Chest non-tender, No respiratory distress, Breath sounds nml Cardiovascular: positive: Regular rate & rhythm Abdomen: positive: Non-tender, Nml bowel sounds, No distention Skin: positive: Color nml Extremities: positive: Non-tender, Nml appearance Neurologic/Psychiatric: positive: Oriented x3, Motor nml, Sensation nml, Mood/affect nml Conclusion/Plan - Diagnosis Diagnosis: Abdominal pain - Plan Plan: Obtain a gastrograffin challenge study now that an NG tube has been placed. In a [facility] review it was shown that if there is gastrograffin in the colon within 48 hours that there is a 98% likelihood that surgical intervention will not be necessary. My exam combined with the lack of a leukocytosis speaks against an acute surgical problem. Will follow. Agree with addition of steroids to treatment and taper should be at her physical therapy coordinator's opinion/direction. I asked the patient to please let us know if we can make her stay at [facility] more comfortable to please let us know. 45 minutes of [id number] time spent with the patient, the majority of which was spent in discussion, coordination of care, and completion of the requisite paperwork Dragon disclaimer: This document was created in part using voice recognition technology. Because of the inherent limitations of the system ([employer]'s Dragon Dictate user manual states that the licensee understands that speech recognition is a statistical process and that recognition errors are inherent in the process), occasional same sounding word substitutions and grammatical errors do occur and persist despite proofreading. Please read this document for context. - Lab Results Lab results reviewed: Yes Fish Bones: 02/27/19 08:20 02/27/19 08:20 - Diagnostic Imaging Results Diagnostic Imaging Results: positive: Final report reviewed, Read independently Diagnostic Imaging Results Comments: My reading of the CT scan (and I am no radiologist) is less impressive as I do not appreciate a complete or concerning obstruction.
[2019-02-28] MEDS: SODIUM CHLORIDE FLUSH 0.9% 10 ML SYRINGE IVP SCH (05:17)
[2019-02-28] MEDS: PANTOPRAZOLE 40 MG VIAL IVP SCH (05:17)
[2019-02-28] MEDS: methylPREDNISolone SUCCINATE 40 MG/ML VIAL IVP SCH ×2 (05:17→14:26)
[2019-02-28] MEDS: LACTATED RINGERS 1,000 ML IV SCH (08:05)
[2019-02-28] MEDS ORDERED: ENOXAPARIN 40 MG/0.4 ML SYRINGE SUBQ SCH (09:00)
[2019-02-28] MEDS ORDERED: POLYETHYLENE GLYCOL 3350 17 GM PACKET PO SCH (09:00)
[2019-02-28] MEDS ORDERED: LACTATED RINGERS 1,000 ML IV SCH (10:16)
[2019-02-28] MEDS ORDERED: SUCRALFATE 1 GM/10 ML UDC PO PRN (14:14)
--- NOTE | 2019-02-28 16:33 | Discharge Plan ---
Discharge Plan Disposition: Home, Self Care Condition: Stable Prescriptions: predniSONE [Prednisone] 10 mg PO DAILY #70 tablet Diet: Soft Activity Restrictions: Activity as Tolerated Shower Restrictions: No Driving Restrictions: No Instruction Topics: Obstruction Sm Bowel, ED Abdominal Pain Adhesions, Disease Crohn Dc Additional Instructions or Follow Up instructions: You were here for a partial bowel obstruction, related to your prior abdominal surgery and inflammatory bowel disease. You are being prescribed steroids to taper down over 1 month. Resume your other pre-hospital medications. You should see your PCP or Label Designer in 5-10 days in hospital follow- up. Speak to your provider with any questions or refills. No Smoking: If you smoke, Please STOP! Call for help. Follow-up with: Juliana Handy PA-C [Primary Care Provider] -
[2019-02-28 16:52] VITALS: BP 118/62
--- NOTE | 2019-02-28 16:54 | DISCHARGE SUMMARY ---
Discharge Summary Admit Date: 02/27/19 Discharge Date: 02/28/19 Discharging Provider: Chrissy Campbell MD Primary Care Provider: Juliana Handy Code Status: Attempt Resuscitation Condition at Discharge: Stable Discharge Disposition: 01 Home, Self Care - DIAGNOSES Admission Diagnoses: SBO Hx of Crohns dis Dehydration Hypothyroidism Discharge Diagnoses with Status of Each Condition: 1) SBO - She had bowel rest, ng tube decompression by suxction, iv hydration and a Gasgtrograffin challenge, which did pass into the colon, by imaging and this helped her achieve a (loose) bowel movement (several times). 2) Crohn's dosease - This was managed as recommended by her Independent Producer. She received iv Solumedrol 40 mg tid and then was sent home with Prednsione, with a slow tapering schedule over 1 month: 40 mg x 1 week, 30 mg x 1 week, 20 mg x 1 week, 10 mg x 5 days, and 5 mg for 5 days. 3) Dehydration - She was on iv fluids at 125 cc/hr for a day, then transitioned to clear liquids then a soft diet, which she tolerated. She was advised to advance her diet as tolerated and to stay hydrated. 4) Post-herpetic neuralgia. She was not on her po meds for this for 1 day, then advised to resume them at discharge. 5) Hypothyroidism. She was not on her po meds for this for 1 day, then advised to resume them at discharge. - HPI History of Present Illness: This is a 63-year-old female with a history of chronic Crohn's disease for which she sees a Dr. Villa her primary Independent Producer in [place] and she was recently getting over her previous "flare" of Crohn's disease. Here she presented with crampy abdominal pain with acute onset of bloating nausea and episodic vomiting. Patient had an acute closed-loop small bowel obstruction to the mid proximal small bowel loops in the left mid upper abdomen seen on CT abdomen pelvis in the emergency department in addition cholelithiasis without acute cholecystitis was seen in the setting of elevated transaminitis. Patient also had mid distal ileum and proximal colon mucosal thickening consistent with Crohn's disease. General surgery was consulted and advised NG tube placement. Her primary oracle consultant Dr. Villa in [place] advised on placing patient on bowel rest, IV steroids and IV fluids and continuing on a Prednisone taper for approximately 4 weeks. - CONSULTS | PROCEDURES Consultations: General Surgery Procedures: None - HOSPITAL COURSE Hospital Course: As above - ALLERGIES Allergies/Adverse Reactions: Allergies Allergy/AdvReac Type Severity Reaction Status Date / Time codeine AdvReac Intermediate Nausea Verified 02/27/19 08:24 - MEDICATIONS Home Medications: Ambulatory Orders Medication Instructions Recorded Confirmed Amitriptyline [Elavil] 10 mg PO QPM 02/27/19 02/27/19 Gabapentin 100 mg PO DAILY 02/27/19 02/27/19 Gabapentin 300 mg PO DAILY PM 02/27/19 02/27/19 Levothyroxine [Synthroid] 50 mcg PO QDAC 02/27/19 02/27/19 Mesalamine [Lialda] 1.2 gm PO 02/27/19 predniSONE [Prednisone] 10 mg PO DAILY #70 tablet 02/28/19 - PHYSICAL EXAM AT DISCHARGE General Appearance: positive: Alert Eyes Bilateral: positive: Normal inspection, PERRL ENT: positive: No signs of dehydration Neck: positive: Nml inspection Respiratory: positive: No respiratory distress Cardiovascular: positive: Regular rate & rhythm, No murmur Abdomen: positive: Non-tender, Nml bowel sounds, No distention Extremities: positive: No pedal edema - LABS Result Diagrams: 02/27/19 08:20 02/27/19 08:20 - DIAGNOSTIC IMAGING Diagnostic Imaging Results: Final report reviewed - SEPSIS Current Stage of Sepsis: Ruled out - FOLLOW UP Follow Up: She was advised to see her PCP and/or Independent Producer in 5-10 days for hospital follow-up. - TIME SPENT Time Spent in Discharge (Minutes): 30
== END 2019-02-28 17:05 | disposition home or self-care (01) ==
LOC: EDUNIT# → ED 08:14 → ICU 13:11 → MS3 19:07
PROVIDERS: ADMIT Family Medicine; ATTEND Family Medicine
DX: K50.812 Crohn's disease of both small and large intestine with intestinal obstruction (principal); E86.0 Dehydration; B02.29 Other postherpetic nervous system involvement; E03.9 Hypothyroidism, unspecified; K80.20 Calculus of gallbladder without cholecystitis without obstruction; R73.9 Hyperglycemia, unspecified
CPT/HCPCS: 36415; 71045; 74177; 74250; 80053; 81003; 83690; 85025; 86141; 87150; 96361; 96374; 96375; 96376; 99284; G0378; J2060; J3010; J7120; Q9967; 74018; 81001; 87086

== ENCOUNTER 2019-03-02 14:11 | Outpatient (CLI) | payer OTHER ==
--- NOTE | 2019-03-03 15:33 | DEXA Report ---
Reason: POSTMENOPAUSAL Procedure Date: 03/02/2019 Accession Number: [id number] / [id number] Procedure: DEX - Dexa Spine and/or Hip CPT Code: FULL RESULT: EXAM: Dexa Spine and/or Hip DATE: 03/02/2019 2:49 PM CLINICAL HISTORY: POSTMENOPAUSAL TECHNIQUE: Dual energy x-ray absorptiometry (DXA) was performed on a Medius System. Regions measured are the AP Spine, femoral neck, and if needed forearm. COMPARISON: 11/05/2016 In accordance with the International Society for Clinical Densitometry (ISCD) guidelines, data from previous exams may be reanalyzed using current recommendations and techniques. This is done to allow a more accurate basis for comparison with the current study. FINDINGS: The data for the lumbar spine is as follows: BMD (g/cm/cm) T-SCORE Z-SCORE REGION L1 1.152 0.2 1.5 L2 1.157 -0.4 0.9 L3 1.100 -0.8 0.5 L4 1.104 -0.8 0.5 TOTAL 1.125 -0.5 0.8 NOTE: All evaluable vertebrae are used for classification The data for the hip is as follows: BMD (g/cm/cm) T-SCORE Z-SCORE REGION Neck 0.849 -1.4 -0.1 TOTAL 0.873 -1.1 -0.1 NOTE: The femoral neck or total proximal femur, whichever is lowest, is used for classification. DXA RESULTS SUMMARY: Spine SCAN DATE AGE BMD CHANGE VS CHANGE VS PREVIOUS PREVIOUS % [birth year]02[birth year]2019 [age] 1.125 0.050* 4.7* 11/05/2016 62.4 1.075 * Denotes significant change at the 95% confidence level. Denotes dissimilar scan types or analysis methods. DXA RESULTS SUMMARY: Hip SCAN DATE AGE BMD CHANGE VS CHANGE VS PREVIOUS PREVIOUS % [birth year]02[birth year]2019 64.7 0.873 -0.055* -5.9* 11[birth year]05/2016 62.4 0.928 * Denotes significant change at the 95% confidence level. Denotes dissimilar scan types or analysis methods. IMPRESSION: THE WHO CLASSIFICATION BASED ON THE INTERNATIONAL REFERENCE STANDARD IS OSTEOPENIA. THE FRACTURE RISK IS INCREASED. RECOMMENDATION: Patients with diagnosis of osteoporosis or osteopenia should have regular bone mineral density assessment. For those eligible for Medicare, routine testing is allowed once every 2 years. Testing frequency can be increased for patients who have rapidly progressing disease or for those who are receiving medical therapy to restore bone mass. COMMENT: World Health Organization (WHO) definitions for osteoporosis and osteopenia: NORMAL BMD: T-score at -1.0 or higher, fracture risk is low OSTEOPENIA BMD: T-score between -1.0 and -2.5, fracture risk is increased. OSTEOPOROSIS BMD: T-score at -2.5 or lower, fracture risk is high. National Osteoporosis Foundation recommends: 1. Obtain adequate dietary calcium (at least 1200 mg per day) and vitamin D (400-800 international units per day). 2. Participate, as appropriate, in regular weightbearing and muscle-strengthening exercise. 3. Avoid tobacco use and reduce alcohol and caffeine intake. 4. For more detailed information see the website at www.NOF.org.
== END 2019-03-02 14:12 | disposition home or self-care (01) ==
LOC: DI 14:11
PROVIDERS: ATTEND Physician Assistant Medical
DX: M85.89 Other specified disorders of bone density and structure, multiple sites (principal); Z78.0 Asymptomatic menopausal state
CPT/HCPCS: 77080

== ENCOUNTER 2019-05-10 09:39 | Outpatient (CLI) | payer OTHER ==
[2019-05-10 17:51] LABS: BASOPHILS % (AUTO) 0.4 %; EOSINOPHILS % (AUTO) 0.4 %; HGB - HEMOGLOBIN 10.2 g/dL (12.0-16.0); LYMPHOCYTES # (AUTO) 0.7 10^3/uL (1.5-3.5); LYMPHOCYTES % (AUTO) 6.1 %; MEAN CORPUSCULAR HEMOGLOBIN 28.7 pg (27.0-31.0); MEAN CORPUSCULAR VOLUME 99.2 fL (81.0-99.0); MEAN PLATELET VOLUME 9.3 fL (7.9-10.8); MONOCYTES # (AUTO) 0.6 10^3/uL (0.0-1.0); MONOCYTES % (AUTO) 5.4 %; NEUTROPHILS % (AUTO) 87.4 %; PLT - PLATELET COUNT 347 10^3/uL (130-450); RED BLOOD COUNT 3.55 10^6/uL (4.20-5.40); RED CELL DISTRIBUTION WIDTH 14.6 % (12.0-15.0); WHITE BLOOD COUNT 11.4 x10^3/uL (4.8-10.8)
== END 2019-05-10 09:40 | disposition home or self-care (01) ==
LOC: LAB.F 09:39
PROVIDERS: ATTEND Physician Assistant Medical
DX: E03.9 Hypothyroidism, unspecified (principal); D72.819 Decreased white blood cell count, unspecified; E55.9 Vitamin D deficiency, unspecified
CPT/HCPCS: 36415; 82306; 84443; 85025

== ENCOUNTER 2019-05-16 18:06 | Outpatient (CLI) | payer OTHER | END 2019-05-16 18:07 | disposition critical access hospital (66) | LOC: EMS 18:06 | PROVIDERS: ATTEND Surgery | DX: K92.1 Melena (principal); R42 Dizziness and giddiness | CPT/HCPCS: A0425; A0427 ==

== ENCOUNTER 2019-05-16 18:45 | Inpatient (IN) | payer OTHER ==
[2019-05-16 19:20] LABS: RED CELL DISTRIBUTION WIDTH 14.6 % (12.0-15.0)
--- NOTE | 2019-05-16 19:20 | ED Physician Documentation ---
PD HPI ABD PAIN - Stated complaint Stated Complaint: GI BLEED - Chief complaint Chief Complaint: Abd Pain - History obtained from History obtained from: Patient - History of Present Illness Timing - onset: Today (63-year-old woman with Crohn's disease, followed by Dr. Joe Villa in [place]. She is currently on mesalamine and she is also on a long prednisone taper that she is been on for the last month, currently 30 mg a day. Since early this morning she had recurrent episodes of significant dark red blood per rectum without abdominal pain or nausea.) Review of Systems Ten Systems: 10 systems reviewed and negative Constitutional: reports: Reviewed and negative Throat: reports: Reviewed and negative GI: denies: Abdominal Swelling, Nausea, Vomiting Neurologic: reports: Other (On and off she is been feeling weak and dizzy and presyncopal today.) PD PAST MEDICAL HISTORY - Past Medical History Past Medical History: Yes Cardiovascular: None Respiratory: None Neuro: Other Endocrine/Autoimmune: Other GI: Crohn's disease Other Past Medical History: hypothyroid herpetic neuralgia - Past Surgical History Past Surgical History: Yes General: Bowel surgery HEENT: Tonsil/Adenoidectomy - Present Medications Home Medications: Ambulatory Orders Medication Instructions Recorded Confirmed Amitriptyline [Elavil] 10 mg PO QPM 02/27/19 02/27/19 Gabapentin 100 mg PO DAILY 02/27/19 02/27/19 Gabapentin 300 mg PO DAILY PM 02/27/19 02/27/19 Levothyroxine [Synthroid] 50 mcg PO QDAC 02/27/19 02/27/19 Mesalamine [Lialda] 1.2 gm PO 02/27/19 predniSONE [Prednisone] 10 mg PO DAILY #70 tablet 02/28/19 - Allergies Allergies/Adverse Reactions: Allergies Allergy/AdvReac Type Severity Reaction Status Date / Time codeine AdvReac Intermediate Nausea Verified 02/27/19 08:24 - Social History Does the pt smoke?: No Smoking Status: Never smoker Does the pt drink ETOH?: No - Family History Family history: reports: Non contributory - Immunizations Immunizations are current?: Yes - POLST Patient has POLST: No PD ED PE NORMAL - Vitals Vital signs reviewed: Yes - General General: Alert and oriented X 3, No acute distress - HEENT HEENT: PERRL, EOMI - Neck Neck: Supple, no meningeal sign, No bony TTP - Cardiac Cardiac: RRR, No murmur - Respiratory Respiratory: No respiratory distress, Clear bilaterally - Abdomen Abdomen: Normal bowel sounds, Soft, Non tender - Back Back: No CVA TTP, No spinal TTP - Derm Derm: Normal color, Warm and dry - Extremities Extremities: No edema, No calf tenderness / cord - Neuro Neuro: Alert and oriented X 3, Normal speech - Psych Psych: Normal mood, Normal affect Results - Vitals Vitals: Vital Signs - 24 hr 05/16/19 05/16/19 05/16/19 18:48 18:52 21:15 Temperature 36.1 C L Heart Rate 75 74 71 Respiratory 18 18 Rate Blood Pressure 114/61 112/59 L 110/57 L O2 Saturation 98 100 05/16/19 21:27 Temperature 36.6 C Heart Rate Respiratory Rate Blood Pressure O2 Saturation Oxygen O2 Source Room air - Labs Labs: Laboratory Tests 05/16/19 05/16/19 05/16/19 19:10 19:10 19:10 WBC 10.0 RBC 2.60 L Hgb 7.3 L Hct 25.5 L MCV 98.1 MCH 28.1 MCHC 28.6 L RDW 14.6 Plt Count 329 MPV 9.1 Neut # (Auto) 7.3 H Lymph # (Auto) 1.5 [place] # (Auto) 0.9 Eos # (Auto) 0.1 Baso # (Auto) 0.0 Absolute Nucleated RBC 0.00 Nucleated RBC % 0.0 Manual Slide Review Indicated Platelet Estimate NORMAL (130-450,000) Platelet Morphology NORMAL APPEARANCE RBC Morph Micro Appear 1+ BASO STIPPLING PT 11.6 INR 1.0 Sodium Potassium Chloride Carbon Dioxide Anion Gap BUN Creatinine Estimated GFR (MDRD) Glucose Calcium Total Bilirubin AST ALT Alkaline Phosphatase Total Protein Albumin Globulin Albumin/Globulin Ratio Lipase Blood Type O POSITIVE Antibody Screen NEGATIVE 05/16/19 19:10 WBC RBC Hgb Hct MCV MCH MCHC RDW Plt Count MPV Neut # (Auto) Lymph # (Auto) [place] # (Auto) Eos # (Auto) Baso # (Auto) Absolute Nucleated RBC Nucleated RBC % Manual Slide Review Platelet Estimate Platelet Morphology RBC Morph Micro Appear PT INR Sodium 139 Potassium 3.7 Chloride 102 Carbon Dioxide 26 Anion Gap 11.0 BUN 31 H Creatinine 1.0 Estimated GFR (MDRD) 56 L Glucose 158 H Calcium 8.1 L Total Bilirubin 0.3 AST 12 ALT 14 Alkaline Phosphatase 44 Total Protein 4.7 L Albumin 2.6 L Globulin 2.1 Albumin/Globulin Ratio 1.2 Lipase 46 Blood Type Antibody Screen PD MEDICAL DECISION MAKING - ED course ED course: 63-year-old woman with history of Crohn's disease presents with dark red blood per rectum, her hemodynamics are normal but she has a significant drop in her H&H, her usual H&H is around 14, last week it was 10 and now it is 7.3. I spoke with Dr. Us director content marketing for [facility] gastroenterology who felt that given the lack of abdominal pain and cramping and lack of diarrhea, it may not even be a Crohn's flare, might just be a diverticular bleed. She recommends watchful waiting with trending of her H&H's. She does not recommend increasing her steroids or any other specific medications for her Crohn's at this point. She did not feel the patient necessarily needed to be transferred to a higher level of care. Spoke with Dr. Higinio San for consultation and he will follow. Spoke with Dr. Han for admission at 9:30 PM. Departure - Departure Disposition: 66 [facility] DC/Xfer Clinical Impression: Lower GI bleed Condition: Fair
[2019-05-16 19:28] LABS: BASOPHILS % (AUTO) 0.2 %; EOSINOPHILS # (AUTO) 0.1 10^3/uL (0.0-0.7); EOSINOPHILS % (AUTO) 1.3 %; HGB - HEMOGLOBIN 7.3 g/dL (12.0-16.0); LYMPHOCYTES # (AUTO) 1.5 10^3/uL (1.5-3.5); LYMPHOCYTES % (AUTO) 15.1 %; MEAN CORPUSCULAR HEMOGLOBIN 28.1 pg (27.0-31.0); MEAN CORPUSCULAR HGB CONC 28.6 g/dL (32.0-36.0); MEAN CORPUSCULAR VOLUME 98.1 fL (81.0-99.0); MEAN PLATELET VOLUME 9.1 fL (7.9-10.8); MONOCYTES # (AUTO) 0.9 10^3/uL (0.0-1.0); MONOCYTES % (AUTO) 9.3 %; NEUTROPHILS # (AUTO) 7.3 10^3/uL (1.5-6.6); NEUTROPHILS % (AUTO) 73.4 %; PLT - PLATELET COUNT 329 10^3/uL (130-450)
[2019-05-16 19:38] LABS: PT - PROTHROMBIN TIME 11.6 secs (9.9-12.6)
[2019-05-16 19:40] LABS: ALBUMIN 2.6 g/dL (3.2-5.5); ALBUMIN/GLOBULIN RATIO 1.2 (1.0-2.2); BILIRUBIN,TOTAL 0.3 mg/dL (0.2-1.0); CALCIUM 8.1 mg/dL (8.5-10.3); TOTAL PROTEIN 4.7 g/dL (6.7-8.2)
[2019-05-16 20:02] LABS: PLATELET ESTIMATE, MANUAL NORMAL (130-450,000) (NORMAL); PLATELET MORPHOLOGY NORMAL APPEARANCE (NORMAL)
[2019-05-16] MEDS ORDERED: PROCHLORPERAZINE 10 MG/2 ML VIAL IVP PRN (21:37)
[2019-05-16] MEDS ORDERED: ONDANSETRON ODT 4 MG TABLET TL PRN (21:37)
[2019-05-16 22:02] LABS: HB2 TOTAL 7.6 g/dL; HEMOGLOBIN A1C 0.36 g/dL; HEMOGLOBIN A1C % 6.5 % (4.6-6.2)
[2019-05-16] MEDS: MESALAMINE 400 MG CAPSULE PO SCH (22:28)
[2019-05-16] MEDS: DEXTROSE 5%-0.9% NACL 1,000 ML IV SCH (22:37)
--- NOTE | 2019-05-16 22:49 | HISTORY & PHYSICAL EXAMINATION ---
Chief Complaint - Chief Complaint Chief Complaint: Dark bright red blood per rectum mixed with stool, weakness GI Bleed Admit Template - Admitted From Admitted from: ED - History Obtained From Records Reviewed: RN notes reviewed History obtained from: Patient Exam limitations: No limitations - History of Present Illness HPI Comment/Other: 63-year-old woman w/ Pmhx of Hypothyroidism, Chronic steroid use with a steroid taper for treatment Crohn's disease, followed by Dr. Joe Villa in [place]. She is currently on mesalamine and she is also on a long prednisone taper that she is been on for the last month, currently 30 mg a day. Since early this morning she had recurrent episodes of significant dark red blood per rectum without abdominal pain or nausea. Patient was admitted for a bowel obstruction in February 2019. On examination patient was hemodynamically stable, afebrile, did not complain of crampy abdominal pain, no diarrhea. Patient presented with a hemoglobin of 7.3 which on 05/10 patient's hemoglobin was 10.2 and on 03/10 hemoglobin of 14 g/dl. Patient also had mild Acute renal insuff secondary to GI losses of blood with a cr 1.0 w/ baseline cr ranging 0.7-0.9, was on all her home meds without any use of NSAIDs or ETOh use. Dr. Us from [facility] was called by ED and informed of clinical presentation and there was recommendations for observation with H/H monitoring alongside keeping same dose of 30 mg po prednisone along withe her mesalamine at 1.2 g daily. Possible diverticular bleed was enter tained, for which Dr. San was called and consulted as well for possible endoscopy. PMH/PSH - Past Medical History Cardiovascular: positive: None Respiratory: positive: None Neuro: positive: Other Endocrine/Autoimmune: positive: Other GI: positive: Crohn's disease Other Past Medical History: hypothyroid herpetic neuralgia - Past Surgical History General: positive: Bowel surgery HEENT: positive: Tonsil/Adenoidectomy Social & Family Hx - Social History Does the pt smoke?: No Smoking Status: Never smoker Does the pt drink ETOH?: No - POLST Patient has POLST: No Meds/Allgy - Home Medications Home Medications: Ambulatory Orders Medication Instructions Recorded Confirmed Amitriptyline [Elavil] 10 mg PO QPM 02/27/19 02/27/19 Gabapentin 100 mg PO DAILY 02/27/19 02/27/19 Gabapentin 300 mg PO DAILY PM 02/27/19 02/27/19 Levothyroxine [Synthroid] 50 mcg PO QDAC 02/27/19 02/27/19 Mesalamine [Lialda] 1.2 gm PO 02/27/19 predniSONE [Prednisone] 10 mg PO DAILY #70 tablet 02/28/19 - Allergies Allergies/Adverse Reactions: Allergies Allergy/AdvReac Type Severity Reaction Status Date / Time codeine AdvReac Intermediate Nausea Verified 02/27/19 08:24 Review of Systems - All Other Systems All Other Systems: reports: Reviewed and negative Prior Level of Functionality: Patient's functional capacity as well as home ADLs adequate Exam - Vital Signs Reviewed Vital Signs: Yes Vital Signs: Vital Signs x48h Temp Pulse Pulse Resp BP BP Pulse Ox 05/16/19 22:34 36.2 C L 63 106/54 L 05/16/19 21:27 36.6 C 05/16/19 21:15 71 110/57 L 100 05/16/19 18:52 74 18 112/59 L 05/16/19 18:48 36.1 C L 75 18 114/61 98 - Physical Exam General Appearance: positive: No acute distress, Alert Eyes Bilateral: positive: Normal inspection, PERRL, EOMI, Other (Mild conjunctival pallor) ENT: positive: ENT inspection nml, Pharynx nml, No signs of dehydration Neck: positive: Nml inspection, Thyroid nml, No JVD, Trachea midline. negative: Thyromegaly Respiratory: positive: Chest non-tender, No respiratory distress, Breath sounds nml Cardiovascular: positive: Regular rate & rhythm, No murmur, No gallop Peripheral Pulses: positive: 2+ Abdomen: positive: Non-tender, No organomegaly, Nml bowel sounds, No distention. negative: Tenderness Back: positive: Nml inspection Skin: positive: No rash, Warm, Pallor. negative: Skin rash Extremities: positive: Non-tender, Full ROM, Nml appearance Neurologic/Psychiatric: positive: Oriented x3, CN's nml (2-12) Results - Lab Results Lab results reviewed: Yes Fish Bones: 05/16/19 19:10 05/16/19 19:10 Other Lab Results: Lab Results x24hrs 0605/16/19 05/16/19 Range/Units 20:42 19:10 19:10 WBC (4.8-10.8) x10^3/uL RBC (4.20-5.40) 10^6/uL Hgb (12.0-16.0) g/dL Hct (37.0-47.0) % MCV (81.0-99.0) fL MCH (27.0-31.0) pg MCHC (32.0-36.0) g/dL RDW (12.0-15.0) % Plt Count (130-450) 10^3/uL MPV (7.9-10.8) fL Neut # (Auto) (1.5-6.6) 10^3/uL Lymph # (Auto) (1.5-3.5) 10^3/uL [place] # (Auto) (0.0-1.0) 10^3/uL Eos # (Auto) (0.0-0.7) 10^3/uL Baso # (Auto) (0.0-0.1) 10^3/uL Absolute Nucleated RBC x10^3/uL Nucleated RBC % /100WBC Manual Slide Review Platelet Estimate (NORMAL) Platelet Morphology (NORMAL) RBC Morph Micro Appear (NORMAL) PT (9.9-12.6) secs INR (0.8-1.2) Sodium 139 (135-145) mmol/L Potassium 3.7 (3.5-5.0) mmol/L Chloride 102 (101-111) mmol/L Carbon Dioxide 26 (21-32) mmol/L Anion Gap 11.0 (6-13) BUN 31 H (6-20) mg/dL Creatinine 1.0 (0.4-1.0) mg/dL Estimated GFR (MDRD) 56 L (>89) Glucose 158 H (70-100) mg/dL Glycated Hemoglobin 6.5 H (4.6-6.2) % Estim Average Glucose 140 H (70-100) Calcium 8.1 L (8.5-10.3) mg/dL Total Bilirubin 0.3 (0.2-1.0) mg/dL AST 12 (10-42) IU/L ALT 14 (10-60) IU/L Alkaline Phosphatase 44 (42-121) IU/L Total Protein 4.7 L (6.7-8.2) g/dL Albumin 2.6 L (3.2-5.5) g/dL Globulin 2.1 (2.1-4.2) g/dL Albumin/Globulin Ratio 1.2 (1.0-2.2) Lipase 46 (22-51) U/L Blood Type Cancelled Antibody Screen Cancelled Crossmatch IS Only See Detail 05/16/19 05/16/19 05/16/19 Range/Units 19:10 19:10 19:10 WBC 10.0 (4.8-10.8) x10^3/uL RBC 2.60 L (4.20-5.40) 10^6/uL Hgb 7.3 L (12.0-16.0) g/dL Hct 25.5 L (37.0-47.0) % MCV 98.1 (81.0-99.0) fL MCH 28.1 (27.0-31.0) pg MCHC 28.6 L (32.0-36.0) g/dL RDW 14.6 (12.0-15.0) % Plt Count 329 (130-450) 10^3/uL MPV 9.1 (7.9-10.8) fL Neut # (Auto) 7.3 H (1.5-6.6) 10^3/uL Lymph # (Auto) 1.5 (1.5-3.5) 10^3/uL [place] # (Auto) 0.9 (0.0-1.0) 10^3/uL Eos # (Auto) 0.1 (0.0-0.7) 10^3/uL Baso # (Auto) 0.0 (0.0-0.1) 10^3/uL Absolute Nucleated RBC 0.00 x10^3/uL Nucleated RBC % 0.0 /100WBC Manual Slide Review Indicated Platelet Estimate NORMAL (130-450,000) (NORMAL) Platelet Morphology NORMAL APPEARANCE (NORMAL) RBC Morph Micro Appear 1+ BASO STIPPLING (NORMAL) PT 11.6 (9.9-12.6) secs INR 1.0 (0.8-1.2) Sodium (135-145) mmol/L Potassium (3.5-5.0) mmol/L Chloride (101-111) mmol/L Carbon Dioxide (21-32) mmol/L Anion Gap (6-13) BUN (6-20) mg/dL Creatinine (0.4-1.0) mg/dL Estimated GFR (MDRD) (>89) Glucose (70-100) mg/dL Glycated Hemoglobin (4.6-6.2) % Estim Average Glucose (70-100) Calcium (8.5-10.3) mg/dL Total Bilirubin (0.2-1.0) mg/dL AST (10-42) IU/L ALT (10-60) IU/L Alkaline Phosphatase (42-121) IU/L Total Protein (6.7-8.2) g/dL Albumin (3.2-5.5) g/dL Globulin (2.1-4.2) g/dL Albumin/Globulin Ratio (1.0-2.2) Lipase (22-51) U/L Blood Type O POSITIVE Antibody Screen NEGATIVE Crossmatch IS Only - EKG Results EKG Interpreted Independently: No Impression/Plan - Problem List Problem List: 1. Acute symptomatic GI blood loss anemia 2. Acute renal insufficiency 3. Hx Crohns disease 4. Generalized weakness sec to above 5. Steroid induced hyperglycemia 6. Hyperthyroidism 7. Macrocytosis Plan: Admit to tele, H/H monitoring, resume taper dose prednisone at 30 mg po daily per Dr. Us who has advised on not escalating therapy, continue with mesalamine, bowel rest, clears, IVF's, Dr. San consulted. Transfuse under restrictive protocol <7 g/dl, T+CM done, A1c to follow, as well as tsh, b12, FA, iron. May need IV iron as well. Avoid nephrotoxic agents, correct lytes. Call GI at [facility] for further guidance if needed. DVT ppx with SCD's only. Code: FULL Core Measures - Anticipated LOS I expect patient to be DC'd or transferred within 96 hours.: Yes - Issues Hospital Issues and Management Plan: possible transfusions, med mgmt - DVT/VTE - Prophylaxis VTE/DVT Device ordered at admit?: Yes VTE/DVT Prophylaxis med ordered at admit?: No Not Ordered - Medical Reason: Contraindicated (GIB) - Stroke - Rehab Assessment Rehab services assessment to be ordered?: No Not Ordered - Medical Reason: Not indicated - AMI - Statin at Admit Aspirin Prescribed on Admit: No Not Ordered - Medical Reason: Not indicated
[2019-05-17 00:46] LABS: HGB - HEMOGLOBIN 6.2 g/dL (12.0-16.0)
[2019-05-17] MEDS: MESALAMINE 400 MG CAPSULE PO SCH (06:49)
[2019-05-17] MEDS: SODIUM CHLORIDE FLUSH 0.9% 10 ML SYRINGE IVP SCH ×3 (06:49→17:51)
[2019-05-17] MEDS ORDERED: PANTOPRAZOLE 40 MG VIAL IVP SCH (07:00)
[2019-05-17 07:50] LABS: HGB - HEMOGLOBIN 8.8 g/dL (12.0-16.0); MEAN CORPUSCULAR HEMOGLOBIN 27.9 pg (27.0-31.0); MEAN CORPUSCULAR HGB CONC 29.3 g/dL (32.0-36.0); MEAN CORPUSCULAR VOLUME 95.2 fL (81.0-99.0); MEAN PLATELET VOLUME 9.1 fL (7.9-10.8); RED BLOOD COUNT 3.15 10^6/uL (4.20-5.40); RED CELL DISTRIBUTION WIDTH 15.7 % (12.0-15.0); WHITE BLOOD COUNT 8.3 x10^3/uL (4.8-10.8)
[2019-05-17] MEDS ORDERED: predniSONE 10 MG TABLET PO SCH (08:00)
--- NOTE | 2019-05-17 08:06 | CONSULTATION NOTE ---
Referring Provider Name of Referring Provider:: Dr. Han Consult Date: 05/17/19 Chief Complaint - Chief Complaint Chief Complaint: GI bleed History of Present Illness - Admitted From Admitted From:: ER - History Obtained From Records Reviewed: yes History obtained from: pt, records Exam Limitations: none - History of Present Illness HPI Comment/Other: 63 yo female with Crohn's disease admitted last night with 12 hour hx of passing large amount of BRBPR associated with dizziness but no abd pain, N/V, melena, prior wt loss. She has a hx of small bowel resection x 2 approx 20 yrs ago for SBO due to Crohn's disease. She has been on medical management since and is followed by GI in [place]. She was hospitalized 2 months ago for SBO attributed to Crohn's, responded to medical management and was placed on a course of prednisone which completed one month later, followed by a similar episode of painless rectal bleeding, which stopped spontaneously and for which she was restarted on another course of prednisone, which she is still taking, along with mesalamine for her Crohn's. She reports recent onset of heartburn and indigestion over the past few weeks which has not responded well to prn OTC antacids and PPIs. No hx PUD; no prior UGI evaluations. Her last colonoscopy was 2 yrs ago and reportedly confirmed small and large bowel Crohn's disease. A CT 2 months ago showed similar findings. Neg FH CRC. Currently she feels well, with stable vs, having received 2 units of PRBCs for a hgb of 6 noted last night. There has been no further bleeding x 12 hours. 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) GI: reports: Crohn's disease Psych: reports: Other (insomnia) Other Past Medical History: hypothyroid herpetic neuralgia - Past Surgical History General: reports: Bowel surgery (small bowel resection x 2 for Crohn's) HEENT: reports: Tonsil/Adenoidectomy - Family & Social History Family History Comment/Other: neg for CRC or IBD Living arrangement: At home - Substance History Use: Uses substance without health or social issues: NONE - POLST Patient has POLST: No Meds/Allgy - Home Medications Home Medications: Ambulatory Orders Medication Instructions Recorded Confirmed Amitriptyline [Elavil] 10 mg PO QPM 04/08/19 04/08/19 Gabapentin 100 mg PO DAILY 02/27/19 02/27/19 Gabapentin 300 mg PO DAILY PM 02/27/19 02/27/19 Levothyroxine [Synthroid] 50 mcg PO QDAC 02/27/19 02/27/19 Mesalamine [Lialda] 1.2 gm PO 02/27/19 predniSONE [Prednisone] 10 mg PO DAILY #70 tablet 02/28/19 - Allergies Allergies/Adverse Reactions: Allergies Allergy/AdvReac Type Severity Reaction Status Date / Time codeine AdvReac Intermediate Nausea Verified 02/27/19 08:24 Review of Systems - Constitutional Constitutional: denies: Fatigue, Fever, Chills, Weight gain, Weight loss - Gastrointestinal Gastrointestinal: reports: Rectal bleeding, Black stools (chronically dark on iron supplements), Bloody stools, Reflux/heartburn. denies: Abdominal pain, Abdominal distention, Constipation, Diarrhea, Nausea, Vomiting, Bile emesis, [place] blood emesis, Coffee grounds emesis - Hematologic/Lymphatic Hematologic/Lymphatic: denies: Bruising, Blood clots, Bleeding tendencies - All Other Systems All Other Systems: reports: Reviewed and negative Exam - Vital Signs Reviewed Vital Signs: Yes - Physical Exam General Appearance: positive: No acute distress, Alert ENT: positive: ENT inspection nml, Pharynx nml, No signs of dehydration Neck: positive: Nml inspection, Thyroid nml, No JVD. negative: Lymphadenopathy (R), Lymphadenopathy (L) Respiratory: positive: Chest non-tender, No respiratory distress, Breath sounds nml. negative: Wheezes, Rales, Rhonchi Cardiovascular: positive: Regular rate & rhythm, No murmur, No gallop Abdomen: positive: Non-tender, No organomegaly, Nml bowel sounds, No distention, Other (well healed midline surgical scar). negative: Guarding, Splenomegaly, Mass Skin: positive: Color nml, No rash, Warm, Dry. negative: Cyanosis Extremities: positive: Non-tender, No pedal edema. negative: Calf tenderness Neurologic/Psychiatric: positive: Oriented x3 Conclusion/Plan - Diagnosis Diagnosis: 1.GI Bleed; clinically resolving; likely lower gi in nature; ddx inc ludes Crohn's disease, diverticular, angiodysplasia, doubt ischemic or infectious colitis, UGI source. 2. Recent onset of heartburn, indigestion; with steroid use and GI bleeding, ugi source such as PUD, gastritis, etc should be considered. - Plan Plan: Agree with present management. Bowel prep today for EGD/colon tomorrow. PAR conf with pt and consent obtained. Discussed with Dr. Han, who agrees. Thanks, - Lab Results Lab results reviewed: Yes Fish Bones: 05/17/19 07:42 05/16/19 19:10
[2019-05-17 08:13] LABS: ALBUMIN 2.5 g/dL (3.2-5.5); CALCIUM 7.8 mg/dL (8.5-10.3); CREATININE 0.8 mg/dL (0.4-1.0)
[2019-05-17 08:20] LABS: THYROID STIMULATING HORMONE 2.31 uIU/mL (0.34-5.60)
[2019-05-17 08:31] LABS: FOLATE 16.22 ng/mL (5.90 - >24.8)
[2019-05-17 08:58] LABS: HGB - HEMOGLOBIN 8.8 g/dL (12.0-16.0)
[2019-05-17] MEDS: PANTOPRAZOLE 40 MG VIAL IVP SCH ×2 (09:47→21:27)
[2019-05-17] MEDS: POLYETHYLENE GLYCOL 3350 17 GM PACKET PO SCH (09:48)
[2019-05-17] MEDS: predniSONE 10 MG TABLET PO SCH ×2 (12:20→18:05)
[2019-05-17] MEDS: DEXTROSE 5%-0.9% NACL 1,000 ML IV SCH (13:51)
[2019-05-17] MEDS: MESALAMINE 1.2 GM PO SCH (14:33)
[2019-05-17] MEDS: LEVOTHYROXINE 25 MCG TABLET PO SCH (14:35)
--- NOTE | 2019-05-17 15:33 | PROVIDER PROGRESS NOTE ---
Subjective - Prog Note Date Prog Note Date: 05/17/19 - Subjective Pt reports feeling: Improved Subjective: pt feel better after blood transfusion and pt walk at nurse station and hallway. pt is planned to have colonoscopy on tomorrow. Current Medications - Current Medications Current Medications: Active Medications Amitriptyline HCl (Elavil) 20 mg PO QPM [facility] Gabapentin (Neurontin) 300 mg PO QPM [facility] Gabapentin (Neurontin) 100 mg PO DAILY [facility] Dextrose/Sodium Chloride (D5ns) 1,000 mls @ 100 mls/hr IV .Q10H [facility] Last Admin: 05/17/19 13:51 Dose: 100 mls/hr Levothyroxine Sodium (Synthroid) 50 mcg PO QDAC [facility] Last Admin: 05/17/19 14:35 Dose: 50 mcg Ondansetron HCl (Zofran Odt) 4 mg TL Q6HR PRN PRN Reason: Nausea / Vomiting Pantoprazole Sodium (Protonix) 40 mg IVP BID [facility] Last Admin: 05/17/19 09:47 Dose: 40 mg Mesalamine [Lialda] (1.2 Gm Tab) 4 each PO DAILY [facility] Last Admin: 05/17/19 14:33 Dose: 4 each Polyethylene Glycol (Miralax) 17 gm PO DAILY [facility] Last Admin: 05/17/19 09:48 Dose: Not Given Prednisone (Deltasone) 15 mg PO BIDWM [facility] Last Admin: 05/17/19 12:20 Dose: 15 mg Prochlorperazine Edisylate (Compazine Inj) 10 mg IVP Q6HR PRN PRN Reason: Nausea / Vomiting Sodium Chloride (Normal Saline Flush 0.9%) 10 ml IVP PRN PRN PRN Reason: NEEDED PER PROVIDER ORDERS Sodium Chloride (Normal Saline Flush 0.9%) 10 ml IVP 0100,0900,1700 [facility] Last Admin: 05/17/19 09:48 Dose: 10 ml Sodium Sulfate/Potass Sulf/Mag Sulf (Suprep Bowel Prep Kit) 177 ml PO 1800,0500 [facility] Stop: 05/18/19 05:01 Amitriptyline [Elavil] 20 mg PO QPM 02/27/19 Gabapentin 100 mg PO DAILY 02/27/19 Gabapentin 300 mg PO QPM 02/27/19 Levothyroxine [Synthroid] 50 mcg PO QDAC 02/27/19 Mesalamine [Lialda] 4.8 gm PO DAILY 02/27/19 predniSONE [Prednisone] 15 mg PO BIDWM 05/17/19 Objective - Vital Signs/Intake & Output Reviewed Vital Signs: Yes Vital Signs: Vital Signs x48h Temp Pulse Resp BP Pulse Ox 05/17/19 12:56 36.7 C 69 16 100/61 98 05/17/19 08:00 36.7 C 73 16 103/60 98 Intake & Output: Intake & Output 05/14/19 05/15/19 05/16/19 05/17/19 23:59 23:59 23:59 23:59 Intake Total 50 2480 Balance 50 2480 - Objective General Appearance: positive: No acute distress, Alert. negative: Lethargic Eyes Bilateral: positive: Normal inspection, PERRL, No lid inflammation, Conjunctivae nml ENT: positive: ENT inspection nml, Pharynx nml, No signs of dehydration. negative: Purulent nasal drainage, Pharyngeal erythema, Oral lesions Neck: positive: Nml inspection, Thyroid nml, No JVD, Trachea midline. negative: Thyromegaly, Lymphadenopathy (R), Lymphadenopathy (L), Stiff neck, Swelling/bruising, Tracheal deviation Respiratory: positive: Chest non-tender, No respiratory distress, Breath sounds nml. negative: Wheezes, Rales, Rhonchi Cardiovascular: positive: Regular rate & rhythm, No murmur, No gallop. negative: Irregularly irregular, Extrasystoles, Tachycardia, Bradycardia, JVD present, Systolic murmur, Diastolic murmur Peripheral Pulses: 2+ Radial (R), 2+ Radial (L), 2+ Dorsalis pedis (R), 2+ Dorsalis pedis (L) Abdomen: positive: Non-tender, No organomegaly, Nml bowel sounds, No distention. negative: Tenderness, Guarding, Rebound Back: positive: Nml inspection. negative: CVA tenderness (R), CVA tenderness (L) Skin: positive: Color nml, No rash, Warm, Dry. negative: Cyanosis, Diaphoresis, Pallor Extremities: positive: Non-tender, Full ROM, Nml appearance. negative: Calf tenderness, Joint swelling, Myron's sign/cords Neurologic/Psychiatric: positive: Oriented x3, Motor nml, Sensation nml, Mood/affect nml. negative: Weakness, Sensory loss, Facial droop, Slurred/abnml speech, Depressed mood/affect - Lab Results Fish Bones: 05/17/19 08:45 05/17/19 07:42 Other Labs: Lab Results x24hrs 05/17/19 05/17/19 05/17/19 Range/Units 08:45 07:42 07:42 WBC (4.8-10.8) x10^3/uL RBC (4.20-5.40) 10^6/uL Hgb 8.8 L (12.0-16.0) g/dL Hct 29.7 L (37.0-47.0) % MCV (81.0-99.0) fL MCH (27.0-31.0) pg MCHC (32.0-36.0) g/dL RDW (12.0-15.0) % Plt Count (130-450) 10^3/uL MPV (7.9-10.8) fL Neut # (Auto) (1.5-6.6) 10^3/uL Lymph # (Auto) (1.5-3.5) 10^3/uL [place] # (Auto) (0.0-1.0) 10^3/uL Eos # (Auto) (0.0-0.7) 10^3/uL Baso # (Auto) (0.0-0.1) 10^3/uL Absolute Nucleated RBC x10^3/uL Nucleated RBC % /100WBC Manual Slide Review Platelet Estimate (NORMAL) Platelet Morphology (NORMAL) RBC Morph Micro Appear (NORMAL) PT (9.9-12.6) secs INR (0.8-1.2) Sodium 139 (135-145) mmol/L Potassium 3.9 (3.5-5.0) mmol/L Chloride 102 (101-111) mmol/L Carbon Dioxide 28 (21-32) mmol/L Anion Gap 9.0 (6-13) BUN 21 H (6-20) mg/dL Creatinine 0.8 (0.4-1.0) mg/dL Estimated GFR (MDRD) 72 L (>89) Glucose 112 H (70-100) mg/dL Glycated Hemoglobin (4.6-6.2) % Estim Average Glucose (70-100) Calcium 7.8 L (8.5-10.3) mg/dL Phosphorus 4.0 (2.5-4.6) mg/dL Iron 51 (28-170) ug/dL TIBC 367 (250-450) ug/dL % Saturation 14 L (20-50) % Transferrin 262 (192-382) mg/dL Total Bilirubin (0.2-1.0) mg/dL AST (10-42) IU/L ALT (10-60) IU/L Alkaline Phosphatase (42-121) IU/L Total Protein (6.7-8.2) g/dL Albumin 2.5 L (3.2-5.5) g/dL Globulin (2.1-4.2) g/dL Albumin/Globulin Ratio (1.0-2.2) Lipase (22-51) U/L Vitamin B12 192 (180-914) pg/mL Folate 16.22 (5.90 - >24.8) ng/mL TSH 2.31 (0.34-5.60) uIU/mL Blood Type Antibody Screen Crossmatch IS Only 05/17/19 05/17/19 05/16/19 Range/Units 07:42 00:35 20:42 WBC 8.3 (4.8-10.8) x10^3/uL RBC 3.15 L (4.20-5.40) 10^6/uL Hgb 8.8 L 6.2 L* (12.0-16.0) g/dL Hct 30.0 L 21.7 L (37.0-47.0) % MCV 95.2 (81.0-99.0) fL MCH 27.9 (27.0-31.0) pg MCHC 29.3 L (32.0-36.0) g/dL RDW 15.7 H (12.0-15.0) % Plt Count 269 (130-450) 10^3/uL MPV 9.1 (7.9-10.8) fL Neut # (Auto) (1.5-6.6) 10^3/uL Lymph # (Auto) (1.5-3.5) 10^3/uL [place] # (Auto) (0.0-1.0) 10^3/uL Eos # (Auto) (0.0-0.7) 10^3/uL Baso # (Auto) (0.0-0.1) 10^3/uL Absolute Nucleated RBC x10^3/uL Nucleated RBC % /100WBC Manual Slide Review Platelet Estimate (NORMAL) Platelet Morphology (NORMAL) RBC Morph Micro Appear (NORMAL) PT (9.9-12.6) secs INR (0.8-1.2) Sodium (135-145) mmol/L Potassium (3.5-5.0) mmol/L Chloride (101-111) mmol/L Carbon Dioxide (21-32) mmol/L Anion Gap (6-13) BUN (6-20) mg/dL Creatinine (0.4-1.0) mg/dL Estimated GFR (MDRD) (>89) Glucose (70-100) mg/dL Glycated Hemoglobin (4.6-6.2) % Estim Average Glucose (70-100) Calcium (8.5-10.3) mg/dL Phosphorus (2.5-4.6) mg/dL Iron (28-170) ug/dL TIBC (250-450) ug/dL % Saturation (20-50) % Transferrin (192-382) mg/dL Total Bilirubin (0.2-1.0) mg/dL AST (10-42) IU/L ALT (10-60) IU/L Alkaline Phosphatase (42-121) IU/L Total Protein (6.7-8.2) g/dL Albumin (3.2-5.5) g/dL Globulin (2.1-4.2) g/dL Albumin/Globulin Ratio (1.0-2.2) Lipase (22-51) U/L Vitamin B12 (180-914) pg/mL Folate (5.90 - >24.8) ng/mL TSH (0.34-5.60) uIU/mL Blood Type Cancelled Antibody Screen Cancelled Crossmatch IS Only See Detail 05/16/19 05/16/19 05/16/19 Range/Units 19:10 19:10 19:10 WBC (4.8-10.8) x10^3/uL RBC (4.20-5.40) 10^6/uL Hgb (12.0-16.0) g/dL Hct (37.0-47.0) % MCV (81.0-99.0) fL MCH (27.0-31.0) pg MCHC (32.0-36.0) g/dL RDW (12.0-15.0) % Plt Count (130-450) 10^3/uL MPV (7.9-10.8) fL Neut # (Auto) (1.5-6.6) 10^3/uL Lymph # (Auto) (1.5-3.5) 10^3/uL [place] # (Auto) (0.0-1.0) 10^3/uL Eos # (Auto) (0.0-0.7) 10^3/uL Baso # (Auto) (0.0-0.1) 10^3/uL Absolute Nucleated RBC x10^3/uL Nucleated RBC % /100WBC Manual Slide Review Platelet Estimate (NORMAL) Platelet Morphology (NORMAL) RBC Morph Micro Appear (NORMAL) PT 11.6 (9.9-12.6) secs INR 1.0 (0.8-1.2) Sodium 139 (135-145) mmol/L Potassium 3.7 (3.5-5.0) mmol/L Chloride 102 (101-111) mmol/L Carbon Dioxide 26 (21-32) mmol/L Anion Gap 11.0 (6-13) BUN 31 H (6-20) mg/dL Creatinine 1.0 (0.4-1.0) mg/dL Estimated GFR (MDRD) 56 L (>89) Glucose 158 H (70-100) mg/dL Glycated Hemoglobin 6.5 H (4.6-6.2) % Estim Average Glucose 140 H (70-100) Calcium 8.1 L (8.5-10.3) mg/dL Phosphorus (2.5-4.6) mg/dL Iron (28-170) ug/dL TIBC (250-450) ug/dL % Saturation (20-50) % Transferrin (192-382) mg/dL Total Bilirubin 0.3 (0.2-1.0) mg/dL AST 12 (10-42) IU/L ALT 14 (10-60) IU/L Alkaline Phosphatase 44 (42-121) IU/L Total Protein 4.7 L (6.7-8.2) g/dL Albumin 2.6 L (3.2-5.5) g/dL Globulin 2.1 (2.1-4.2) g/dL Albumin/Globulin Ratio 1.2 (1.0-2.2) Lipase 46 (22-51) U/L Vitamin B12 (180-914) pg/mL Folate (5.90 - >24.8) ng/mL TSH (0.34-5.60) uIU/mL Blood Type Antibody Screen Crossmatch IS Only 05/16/19 05/16/19 Range/Units 19:10 19:10 WBC 10.0 (4.8-10.8) x10^3/uL RBC 2.60 L (4.20-5.40) 10^6/uL Hgb 7.3 L (12.0-16.0) g/dL Hct 25.5 L (37.0-47.0) % MCV 98.1 (81.0-99.0) fL MCH 28.1 (27.0-31.0) pg MCHC 28.6 L (32.0-36.0) g/dL RDW 14.6 (12.0-15.0) % Plt Count 329 (130-450) 10^3/uL MPV 9.1 (7.9-10.8) fL Neut # (Auto) 7.3 H (1.5-6.6) 10^3/uL Lymph # (Auto) 1.5 (1.5-3.5) 10^3/uL [place] # (Auto) 0.9 (0.0-1.0) 10^3/uL Eos # (Auto) 0.1 (0.0-0.7) 10^3/uL Baso # (Auto) 0.0 (0.0-0.1) 10^3/uL Absolute Nucleated RBC 0.00 x10^3/uL Nucleated RBC % 0.0 /100WBC Manual Slide Review Indicated Platelet Estimate NORMAL (130-450,000) (NORMAL) Platelet Morphology NORMAL APPEARANCE (NORMAL) RBC Morph Micro Appear 1+ BASO STIPPLING (NORMAL) PT (9.9-12.6) secs INR (0.8-1.2) Sodium (135-145) mmol/L Potassium (3.5-5.0) mmol/L Chloride (101-111) mmol/L Carbon Dioxide (21-32) mmol/L Anion Gap (6-13) BUN (6-20) mg/dL Creatinine (0.4-1.0) mg/dL Estimated GFR (MDRD) (>89) Glucose (70-100) mg/dL Glycated Hemoglobin (4.6-6.2) % Estim Average Glucose (70-100) Calcium (8.5-10.3) mg/dL Phosphorus (2.5-4.6) mg/dL Iron (28-170) ug/dL TIBC (250-450) ug/dL % Saturation (20-50) % Transferrin (192-382) mg/dL Total Bilirubin (0.2-1.0) mg/dL AST (10-42) IU/L ALT (10-60) IU/L Alkaline Phosphatase (42-121) IU/L Total Protein (6.7-8.2) g/dL Albumin (3.2-5.5) g/dL Globulin (2.1-4.2) g/dL Albumin/Globulin Ratio (1.0-2.2) Lipase (22-51) U/L Vitamin B12 (180-914) pg/mL Folate (5.90 - >24.8) ng/mL TSH (0.34-5.60) uIU/mL Blood Type O POSITIVE Antibody Screen NEGATIVE Crossmatch IS Only ABX Reporting Has patient been on IV antibiotics over the past 48 hours?: No Sepsis Event Note (H) - Evaluation Current Stage of Sepsis: Ruled out Assessment/Plan - Problem List (1) Lower GI bleed Impression: 1. Acute symptomatic GI blood loss anemia pt had two blood transfusion, now she is asymptomatic and walked at nurse station and hallway. her HGB is 8.8 now consult with GI surgeon, followup tomorrow colonoscopy NPO after midnight H&H 2. Acute renal insufficiency improved. today pt's creatinine is 0.8 3. Hx Crohns disease continue home meds steroid and mesalamine 4. Generalized weakness sec to above resolved. it appear from pt's anemia 5. Steroid induced hyperglycemia stable 6. Hyperthyroidism TSH is normal 7. Macrocytosis anemia study show normal B12 and folate
[2019-05-17] MEDS: SODIUM/POTASSIUM/MAG SULFATES 354 ML PREP KIT PO SCH (18:04)
[2019-05-17 19:22] LABS: HGB - HEMOGLOBIN 8.6 g/dL (12.0-16.0)
[2019-05-17] MEDS: AMITRIPTYLINE 10 MG TABLET PO SCH (21:26)
[2019-05-17] MEDS: GABAPENTIN 300 MG CAPSULE PO SCH (21:26)
[2019-05-18] MEDS: DEXTROSE 5%-0.9% NACL 1,000 ML IV SCH ×2 (00:48→10:18)
[2019-05-18] MEDS: SODIUM CHLORIDE FLUSH 0.9% 10 ML SYRINGE IVP SCH ×3 (00:48→21:47)
[2019-05-18] MEDS: SODIUM/POTASSIUM/MAG SULFATES 354 ML PREP KIT PO SCH (05:12)
[2019-05-18 05:46] LABS: BASOPHILS % (AUTO) 0.3 %; EOSINOPHILS % (AUTO) 0.4 %; HGB - HEMOGLOBIN 7.6 g/dL (12.0-16.0); LYMPHOCYTES # (AUTO) 0.9 10^3/uL (1.5-3.5); LYMPHOCYTES % (AUTO) 12.5 %; MEAN CORPUSCULAR HEMOGLOBIN 28.7 pg (27.0-31.0); MEAN CORPUSCULAR HGB CONC 30.2 g/dL (32.0-36.0); MEAN CORPUSCULAR VOLUME 95.1 fL (81.0-99.0); MEAN PLATELET VOLUME 8.6 fL (7.9-10.8); MONOCYTES # (AUTO) 0.5 10^3/uL (0.0-1.0); MONOCYTES % (AUTO) 6.8 %; NEUTROPHILS # (AUTO) 5.5 10^3/uL (1.5-6.6); NEUTROPHILS % (AUTO) 79.4 %; PLT - PLATELET COUNT 230 10^3/uL (130-450); RED BLOOD COUNT 2.65 10^6/uL (4.20-5.40); RED CELL DISTRIBUTION WIDTH 16.1 % (12.0-15.0)
[2019-05-18 05:58] LABS: CALCIUM 7.8 mg/dL (8.5-10.3); CREATININE 0.7 mg/dL (0.4-1.0)
[2019-05-18] MEDS: LEVOTHYROXINE 25 MCG TABLET PO SCH (06:12)
[2019-05-18] MEDS ORDERED: LIDO GARGLE 30 ML BOTTLE ONE (07:19)
--- NOTE | 2019-05-18 07:43 | PROVIDER PROGRESS NOTE ---
Assessment/Plan - Problem List (1) Lower GI bleed Assessment/Plan: Clinically stable. Did not require additional blood past 24 hours. H/H stable. Unclear if still bleeding. Unclear if upper or lower gi source. Plan: EGD/colon today by Dr. Huitron. (2) Crohns disease Qualifiers: Gastrointestinal tract location: small and large intestine Digestive disease complication type: unspecified complication Qualified Code(s): K50.819 - Crohn's disease of both small and large intestine with unspecified complicatio ns Assessment/Plan: Unclear if her Crohn's is the cause of her gi bleeding. Otherwise appears well controlled. Plan: EGD/colon today. - Current Meds Current Meds: Current Medications Generic Name Dose Route Start Last Admin Trade Name Freq PRN Reason Stop Dose Admin Amitriptyline HCl 20 mg 05/17/19 21:00 05/17/19 21:26 Elavil PO 20 mg QPM CLEMENTE Administration Gabapentin 300 mg 05/17/19 21:00 05/17/19 21:26 Neurontin PO 300 mg QPM CLEMENTE Administration Dextrose/Sodium Chloride 1,000 mls @ 100 mls/hr 05/16/19 22:00 05/18/19 00:48 D5ns IV 100 mls/hr .Q10H CLEMENTE Administration Levothyroxine Sodium 50 mcg 05/17/19 15:00 05/18/19 06:12 Synthroid PO 50 mcg QDAC CLEMENTE Administration Pantoprazole Sodium 40 mg 05/17/19 09:00 05/17/19 21:27 Protonix IVP 40 mg BID CLEMENTE Administration Mesalamine [Lialda] 4 each 05/17/19 14:30 05/17/19 14:33 1.2 Gm Tab PO 4 each DAILY CLEMENTE Administration Polyethylene Glycol 17 gm 05/17/19 09:00 05/17/19 09:48 Miralax PO Not Given DAILY CLEMENTE Prednisone 15 mg 05/17/19 13:00 05/17/19 18:05 Deltasone PO 15 mg BIDWM CLEMENTE Administration Sodium Chloride 10 ml 05/17/19 01:00 05/18/19 00:48 Normal Saline Flush 0.9% IVP Not Given 0100,0900,1700 CLEMENTE - Lab Result Lab results reviewed: Yes Fish Bone Diagrams: 05/18/19 05:32 05/18/19 05:32 - Additional Planning Condition/Complexity: Stable My Orders: My Active Orders 05/18/19 00:01 NPO except Meds at Midnight [DIET] Plan Discussed with:: Patient Time Spent: 15-30 minutes Subjective - Subjective Patient Reports: Resting Comfortably, Other (no dizziness, nausea, vomiting, abd pain. tolerated bowel prep well overnight; stools liquid, blood tinged per pt and nurses.) Nursing Reports: No Complaints Objective Vital Signs: Vital Signs - 24 hr 05/17/19 05/17/19 05/17/19 08:00 12:56 17:00 Temperature 36.7 C 36.7 C 36.8 C Heart Rate [ 73 69 68 Monitoring electrodes] Respiratory 16 16 18 Rate Blood Pressure 103/60 100/61 103/61 [Right Brachial artery] O2 Saturation 98 98 97 05/17/19 05/18/19 05/18/19 21:00 00:48 06:15 Temperature 36.7 C 36.4 C L 36.4 C L Heart Rate [ 73 66 56 L Monitoring electrodes] Respiratory 18 16 16 Rate Blood Pressure 106/65 105/61 124/68 [Right Brachial artery] O2 Saturation 96 96 98 Oxygen O2 Source Room air I&O (Last 24 Hrs): Intake and Output Totals x24h 05/16/19 05/17/19 05/18/19 23:59 23:59 23:59 Intake Total 50 4700 1500 Output Total 100 Balance 50 4600 1500 General: Alert, Oriented x3, Cooperative, No acute distress Abdomen: Soft, No tenderness, No hepatospenomegaly, No masses - Results Results: Laboratory Results WBC 7.0 x10^3/uL (4.8-10.8) 05/18/19 05:32 RBC 2.65 10^6/uL (4.20-5.40) L 05/18/19 05:32 Hgb 7.6 g/dL (12.0-16.0) L 05/18/19 05:32 Hct 25.2 % (37.0-47.0) L 05/18/19 05:32 MCV 95.1 fL (81.0-99.0) 05/18/19 05:32 MCH 28.7 pg (27.0-31.0) 05/18/19 05:32 MCHC 30.2 g/dL (32.0-36.0) L 05/18/19 05:32 RDW 16.1 % (12.0-15.0) H 05/18/19 05:32 Plt Count 230 10^3/uL (130-450) 05/18/19 05:32 MPV 8.6 fL (7.9-10.8) 05/18/19 05:32 Neut # (Auto) 5.5 10^3/uL (1.5-6.6) 05/18/19 05:32 Lymph # (Auto) 0.9 10^3/uL (1.5-3.5) L 05/18/19 05:32 [place] # (Auto) 0.5 10^3/uL (0.0-1.0) 05/18/19 05:32 Eos # (Auto) 0.0 10^3/uL (0.0-0.7) 05/18/19 05:32 Baso # (Auto) 0.0 10^3/uL (0.0-0.1) 05/18/19 05:32 Absolute Nucleated RBC 0.00 x10^3/uL 05/18/19 05:32 Nucleated RBC % 0.0 /100WBC 05/18/19 05:32 Manual Slide Review Indicated 05/16/19 19:10 Platelet Estimate NORMAL (130-450,000) (NORMAL) 05/16/19 19:10 Platelet Morphology NORMAL APPEARANCE (NORMAL) 05/16/19 19:10 RBC Morph Micro Appear 3+ HYPOCHROMASIA (NORMAL) 1+ POLYCHROMASIA (NORMAL) 1+ BASO STIPPLING (NORMAL) 05/16/19 19:10 RBC Morph Micro Appear 3+ HYPOCHROMASIA (NORMAL) 1+ POLYCHROMASIA (NORMAL) 1+ BASO STIPPLING (NORMAL) 05/16/19 19:10 RBC Morph Micro Appear 3+ HYPOCHROMASIA (NORMAL) 1+ POLYCHROMASIA (NORMAL) 1+ BASO STIPPLING (NORMAL) 05/16/19 19:10 PT 11.6 secs (9.9-12.6) 05/16/19 19:10 INR 1.0 (0.8-1.2) 05/16/19 19:10 Sodium 142 mmol/L (135-145) 05/18/19 05:32 Potassium 3.4 mmol/L (3.5-5.0) L 05/18/19 05:32 Chloride 109 mmol/L (101-111) 05/18/19 05:32 Carbon Dioxide 27 mmol/L (21-32) 05/18/19 05:32 Anion Gap 6.0 (6-13) 05/18/19 05:32 BUN 13 mg/dL (6-20) 05/18/19 05:32 Creatinine 0.7 mg/dL (0.4-1.0) 05/18/19 05:32 Estimated GFR (MDRD) 84 (>89) L 05/18/19 05:32 Glucose 131 mg/dL (70-100) H 05/18/19 05:32 Glycated Hemoglobin 6.5 % (4.6-6.2) H 05/16/19 19:10 Estim Average Glucose 140 (70-100) H 05/16/19 19:10 Calcium 7.8 mg/dL (8.5-10.3) L 05/18/19 05:32 Phosphorus 4.0 mg/dL (2.5-4.6) 05/17/19 07:42 Iron 51 ug/dL (28-170) 05/17/19 07:42 TIBC 367 ug/dL (250-450) 05/17/19 07:42 % Saturation 14 % (20-50) L 05/17/19 07:42 Transferrin 262 mg/dL (192-382) 05/17/19 07:42 Total Bilirubin 0.3 mg/dL (0.2-1.0) 05/16/19 19:10 AST 12 IU/L (10-42) 05/16/19 19:10 ALT 14 IU/L (10-60) 05/16/19 19:10 Alkaline Phosphatase 44 IU/L (42-121) 05/16/19 19:10 Total Protein 4.7 g/dL (6.7-8.2) L 05/16/19 19:10 Albumin 2.5 g/dL (3.2-5.5) L 05/17/19 07:42 Globulin 2.1 g/dL (2.1-4.2) 05/16/19 19:10 Albumin/Globulin Ratio 1.2 (1.0-2.2) 05/16/19 19:10 Lipase 46 U/L (22-51) 05/16/19 19:10 Vitamin B12 192 pg/mL (180-914) 05/17/19 07:42 Folate 16.22 ng/mL (5.90 - >24.8) 05/17/19 07:42 TSH 2.39 uIU/mL (0.34-5.60) 05/18/19 05:32 Blood Type O POSITIVE 05/16/19 19:10 Antibody Screen NEGATIVE 05/16/19 19:10 Crossmatch IS Only See Detail 05/16/19 20:42 Sepsis Event Note (H) - Evaluation Current Stage of Sepsis: Ruled out ABX Reporting Has patient been on IV antibiotics over the past 48 hours?: No
[2019-05-18] MEDS: predniSONE 10 MG TABLET PO SCH ×2 (08:21→19:42)
[2019-05-18] MEDS: GABAPENTIN 100 MG CAPSULE PO SCH (08:21)
[2019-05-18] MEDS: PANTOPRAZOLE 40 MG VIAL IVP SCH ×2 (08:22→21:44)
[2019-05-18] MEDS: POLYETHYLENE GLYCOL 3350 17 GM PACKET PO SCH (08:23)
[2019-05-18] MEDS: SODIUM CHLORIDE FLUSH 0.9% 10 ML SYRINGE IVP PRN ×2 (08:23→08:31)
[2019-05-18] MEDS ORDERED: POTASSIUM CHLORIDE 20 MEQ TABLET PO ONE (08:45)
[2019-05-18] MEDS ORDERED: ZINC OXIDE 20% OINT 28.35 GM TUBE TOP PRN (10:26)
[2019-05-18 15:27] LABS: HGB - HEMOGLOBIN 7.3 g/dL (12.0-16.0)
--- NOTE | 2019-05-18 15:40 | ANESTHESIA ---
Pre-Anesthesia VS, & Labs - Diagnosis Diagnosis 1.GI Bleed; clinically resolving; likely lower gi in nature; ddx includes Crohn's disease, diverticular, angiodysplasia, doubt ischemic or infectious colitis, UGI source. 2. Recent onset of heartburn, indigestion; with steroid use and GI bleeding, ugi source such as PUD, gastritis, etc should be considered. - Procedure EGD Cscope Vital Signs: Temp Pulse Resp BP Pulse Ox 36.2 C L 65 16 104/58 L 100 05/18/19 11:39 05/18/19 11:39 05/18/19 11:39 05/18/19 11:39 05/18/19 11:39 Height 5 ft 7 in Weight (kg) 73 kg Body Mass Index 25.2 - NPO >8 hours - Is Patient ?: No - Lab Results Current Lab Results: Laboratory Tests 05/18/19 15:22: Hgb 7.3 L, Hct 23.7 L 05/18/19 05:32: TSH 2.39 05/18/19 05:32: Sodium 142, Potassium 3.4 L, Chloride 109, Carbon Dioxide 27, Anion Gap 6.0, BUN 13, Creatinine 0.7, Estimated GFR (MDRD) 84 L, Glucose 131 H, Calcium 7.8 L 05/18/19 05:32: WBC 7.0, RBC 2.65 L, Hgb 7.6 L, Hct 25.2 L, MCV 95.1, MCH 28.7, MCHC 30.2 L, RDW 16.1 H, Plt Count 230, MPV 8.6, Neut # (Auto) 5.5, Lymph # ( Auto) 0.9 L, [place] # (Auto) 0.5, Eos # (Auto) 0.0, Baso # (Auto) 0.0, Absolute Nucleated RBC 0.00, Nucleated RBC % 0.0 05/17/19 19:10: Hgb 8.6 L, Hct 29.5 L 05/17/19 08:45: Hgb 8.8 L, Hct 29.7 L 05/17/19 07:42: Vitamin B12 192, Folate 16.22, TSH 2.31 05/17/19 07:42: Sodium 139, Potassium 3.9, Chloride 102, Carbon Dioxide 28, Anion Gap 9.0, BUN 21 H, Creatinine 0.8, Estimated GFR (MDRD) 72 L, Glucose 112 H, Calcium 7.8 L, Phosphorus 4.0, Iron 51, TIBC 367, % Saturation 14 L, Transferrin 262, Albumin 2.5 L 05/17/19 07:42: WBC 8.3, RBC 3.15 L, Hgb 8.8 L, Hct 30.0 L, MCV 95.2, MCH 27.9, MCHC 29.3 L, RDW 15.7 H, Plt Count 269, MPV 9.1 05/17/19 00:35: Hgb 6.2 L*, Hct 21.7 L 05/16/19 20:42: Blood Type Cancelled, Antibody Screen Cancelled, Crossmatch IS Only See Detail 05/16/19 19:10: Glycated Hemoglobin 6.5 H, Estim Average Glucose 140 H 05/16/19 19:10: Sodium 139, Potassium 3.7, Chloride 102, Carbon Dioxide 26, Anion Gap 11.0, BUN 31 H, Creatinine 1.0, Estimated GFR (MDRD) 56 L, Glucose 158 H, Calcium 8.1 L, Total Bilirubin 0.3, AST 12, ALT 14, Alkaline Phosphatase 44, Total Protein 4.7 L, Albumin 2.6 L, Globulin 2.1, Albumin/Globulin Ratio 1.2, Lipase 46 05/16/19 19:10: PT 11.6, INR 1.0 05/16/19 19:10: WBC 10.0, RBC 2.60 L, Hgb 7.3 L, Hct 25.5 L, MCV 98.1, MCH 28.1, MCHC 28.6 L, RDW 14.6, Plt Count 329, MPV 9.1, Neut # (Auto) 7.3 H, Lymph # (Auto) 1.5, [place] # (Auto) 0.9, Eos # (Auto) 0.1, Baso # (Auto) 0.0, Absolute Nucleated RBC 0.00, Nucleated RBC % 0.0, Manual Slide Review Indicated, Platelet Estimate NORMAL (130-450,000), Platelet Morphology NORMAL APPEARANCE, RBC Morph Micro Appear 1+ BASO STIPPLING 05/16/19 19:10: Blood Type O POSITIVE, Antibody Screen NEGATIVE Fish Bones: 05/18/19 15:22 05/18/19 05:32 Home Medications and Allergies Home Medications: Ambulatory Orders predniSONE [Prednisone] 15 mg PO BIDWM 05/17/19 Active Medications Amitriptyline HCl (Elavil) 20 mg PO QPM [facility] Last Admin: 05/17/19 21:26 Dose: 20 mg Gabapentin (Neurontin) 300 mg PO QPM [facility] Last Admin: 05/17/19 21:26 Dose: 300 mg Gabapentin (Neurontin) 100 mg PO DAILY [facility] Last Admin: 05/18/19 08:21 Dose: 100 mg Dextrose/Sodium Chloride (D5ns) 1,000 mls @ 100 mls/hr IV .Q10H [facility] Last Admin: 05/18/19 10:18 Dose: 100 mls/hr Levothyroxine Sodium (Synthroid) 50 mcg PO QDAC [facility] Last Admin: 05/18/19 06:12 Dose: 50 mcg Multi-Ingredient Ointment (Zinc Oxide) 1 applic TOP PRN PRN PRN Reason: Skin Care Last Admin: 05/18/19 10:44 Dose: 1 applic Ondansetron HCl (Zofran Odt) 4 mg TL Q6HR PRN PRN Reason: Nausea / Vomiting Pantoprazole Sodium (Protonix) 40 mg IVP BID [facility] Last Admin: 05/18/19 08:22 Dose: 40 mg Mesalamine [Lialda] (1.2 Gm Tab) 4 each PO DAILY [facility] Last Admin: 05/17/19 14:33 Dose: 4 each Polyethylene Glycol (Miralax) 17 gm PO DAILY [facility] Last Admin: 05/18/19 08:23 Dose: Not Given Prednisone (Deltasone) 15 mg PO BIDWM [facility] Last Admin: 05/18/19 08:21 Dose: 15 mg Prochlorperazine Edisylate (Compazine Inj) 10 mg IVP Q6HR PRN PRN Reason: Nausea / Vomiting Sodium Chloride (Normal Saline Flush 0.9%) 10 ml IVP PRN PRN PRN Reason: NEEDED PER PROVIDER ORDERS Last Admin: 05/18/19 08:31 Dose: 10 ml Sodium Chloride (Normal Saline Flush 0.9%) 10 ml IVP 0100,0900,1700 [facility] Last Admin: 05/18/19 08:23 Dose: Not Given Amitriptyline [Elavil] 20 mg PO QPM 02/27/19 Gabapentin 100 mg PO DAILY 02/27/19 Gabapentin 300 mg PO QPM 02/27/19 Levothyroxine [Synthroid] 50 mcg PO QDAC 02/27/19 Mesalamine [Lialda] 4.8 gm PO DAILY 02/27/19 predniSONE [Prednisone] 15 mg PO BIDWM 05/17/19 Allergies/Adverse Reactions: Allergies Allergy/AdvReac Type Severity Reaction Status Date / Time codeine AdvReac Intermediate Nausea Verified 02/27/19 08:24 Anes History & Medical History - Anesthetic History Anesthesia Complications: reports: No previous complications Family history of Anesthesia Complications: Denies Family history of Malignant Hyperthermia: Denies - Medical History Cardiovascular: reports: None Pulmonary: reports: None Gastrointestinal: reports: Crohn's disease 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) Endocrine/Autoimmune: reports: Other Smoking Status: Never smoker Other Past Medical History: hypothyroid herpetic neuralgia - Surgical History General: Bowel surgery (small bowel resection x 2 for Crohn's) Eyes Ears Nose Throat (EENT): Tonsil/Adenoidectomy Exam General: Alert, Oriented x3, Cooperative Dental: WNL Neck Mobility: Normal Mallampati classification: II Respiratory: Lungs clear Cardiovascular: Regular rate Neurological: Normal speech Mental/Cognitive Status: Alert/Oriented X3, Normal for patient Plan Anesthesia Type: MAC Consent for Procedure(s) Verified and Reviewed: Yes Code Status: Attempt Resuscitation ASA classification: 2-Mild systemic disease Is this case an emergency?: Yes
[2019-05-18] MEDS ORDERED: KETAMINE 500 MG/10 ML VIAL IVP ONE (16:00)
[2019-05-18] MEDS ORDERED: MIDAZOLAM 2 MG/2 ML VIAL IVP ONE (16:00)
[2019-05-18] MEDS ORDERED: PROPOFOL 200 MG/20 ML VIAL IVP ONE (16:00)
--- NOTE | 2019-05-18 16:34 | PROVIDER PROGRESS NOTE ---
Subjective - Prog Note Date Prog Note Date: 05/18/19 - Subjective Pt reports feeling: No change Subjective: pt report she still bloody stool on today morning. she denies dizziness, SOB, chest pain, asymptomatic for anemia. Current Medications - Current Medications Current Medications: Amitriptyline [Elavil] 20 mg PO QPM 02/27/19 Gabapentin 100 mg PO DAILY 02/27/19 Gabapentin 300 mg PO QPM 02/27/19 Levothyroxine [Synthroid] 50 mcg PO QDAC 02/27/19 Mesalamine [Lialda] 4.8 gm PO DAILY 02/27/19 predniSONE [Prednisone] 15 mg PO BIDWM 05/17/19 Objective - Vital Signs/Intake & Output Reviewed Vital Signs: Yes Vital Signs: Vital Signs x48h Temp Pulse Resp BP Pulse Ox 05/18/19 15:43 36.4 C L 77 16 119/59 L 99 05/18/19 11:39 36.2 C L 65 16 104/58 L 100 Intake & Output: Intake & Output 05/15/19 05/16/19 05/17/19 05/18/19 23:59 23:59 23:59 23:59 Intake Total 50 4700 2850 Output Total 100 Balance 50 4600 2850 - Objective General Appearance: positive: No acute distress, Alert. negative: Lethargic Eyes Bilateral: positive: Normal inspection, PERRL, No lid inflammation, Conjunctivae nml ENT: positive: ENT inspection nml, Pharynx nml, No signs of dehydration. negative: Purulent nasal drainage, Pharyngeal erythema, Oral lesions Neck: positive: Nml inspection, Thyroid nml, No JVD, Trachea midline. negative: Thyromegaly, Lymphadenopathy (R), Lymphadenopathy (L), Stiff neck, Swelling/bruising, Tracheal deviation Respiratory: positive: Chest non-tender, No respiratory distress, Breath sounds nml. negative: Wheezes, Rales, Rhonchi Cardiovascular: positive: Regular rate & rhythm, No murmur, No gallop. negative: Irregularly irregular, Extrasystoles, Tachycardia, Bradycardia, JVD present, Systolic murmur, Diastolic murmur Peripheral Pulses: 2+ Radial (R), 2+ Radial (L), 2+ Dorsalis pedis (R), 2+ Dorsalis pedis (L) Abdomen: positive: Non-tender, No organomegaly, Nml bowel sounds, No distention. negative: Tenderness, Guarding, Rebound Back: positive: Nml inspection. negative: CVA tenderness (R), CVA tenderness (L) Skin: positive: Color nml, No rash, Warm, Dry. negative: Cyanosis, Diaphoresis, Pallor Extremities: positive: Non-tender, Full ROM, Nml appearance. negative: Calf tenderness, Joint swelling, Myron's sign/cords Neurologic/Psychiatric: positive: Oriented x3, Motor nml, Sensation nml, Mood/affect nml. negative: Weakness, Sensory loss, Facial droop, Slurred/abnml speech, Depressed mood/affect - Lab Results Fish Bones: 05/19/19 05:30 05/19/19 05:30 Other Labs: Lab Results x24hrs 05/18/19 05/18/19 05/18/19 Range/Units 15:22 05:32 05:32 WBC (4.8-10.8) x10^3/uL RBC (4.20-5.40) 10^6/uL Hgb 7.3 L (12.0-16.0) g/dL Hct 23.7 L (37.0-47.0) % MCV (81.0-99.0) fL MCH (27.0-31.0) pg MCHC (32.0-36.0) g/dL RDW (12.0-15.0) % Plt Count (130-450) 10^3/uL MPV (7.9-10.8) fL Neut # (Auto) (1.5-6.6) 10^3/uL Lymph # (Auto) (1.5-3.5) 10^3/uL Kay # (Auto) (0.0-1.0) 10^3/uL Eos # (Auto) (0.0-0.7) 10^3/uL Baso # (Auto) (0.0-0.1) 10^3/uL Absolute Nucleated RBC x10^3/uL Nucleated RBC % /100WBC Sodium 142 (135-145) mmol/L Potassium 3.4 L (3.5-5.0) mmol/L Chloride 109 (101-111) mmol/L Carbon Dioxide 27 (21-32) mmol/L Anion Gap 6.0 (6-13) BUN 13 (6-20) mg/dL Creatinine 0.7 (0.4-1.0) mg/dL Estimated GFR (MDRD) 84 L (>89) Glucose 131 H (70-100) mg/dL Calcium 7.8 L (8.5-10.3) mg/dL TSH 2.39 (0.34-5.60) uIU/mL 05/18/19 05/17/19 Range/Units 05:32 19:10 WBC 7.0 (4.8-10.8) x10^3/uL RBC 2.65 L (4.20-5.40) 10^6/uL Hgb 7.6 L 8.6 L (12.0-16.0) g/dL Hct 25.2 L 29.5 L (37.0-47.0) % MCV 95.1 (81.0-99.0) fL MCH 28.7 (27.0-31.0) pg MCHC 30.2 L (32.0-36.0) g/dL RDW 16.1 H (12.0-15.0) % Plt Count 230 (130-450) 10^3/uL MPV 8.6 (7.9-10.8) fL Neut # (Auto) 5.5 (1.5-6.6) 10^3/uL Lymph # (Auto) 0.9 L (1.5-3.5) 10^3/uL Kay # (Auto) 0.5 (0.0-1.0) 10^3/uL Eos # (Auto) 0.0 (0.0-0.7) 10^3/uL Baso # (Auto) 0.0 (0.0-0.1) 10^3/uL Absolute Nucleated RBC 0.00 x10^3/uL Nucleated RBC % 0.0 /100WBC Sodium (135-145) mmol/L Potassium (3.5-5.0) mmol/L Chloride (101-111) mmol/L Carbon Dioxide (21-32) mmol/L Anion Gap (6-13) BUN (6-20) mg/dL Creatinine (0.4-1.0) mg/dL Estimated GFR (MDRD) (>89) Glucose (70-100) mg/dL Calcium (8.5-10.3) mg/dL TSH (0.34-5.60) uIU/mL ABX Reporting Has patient been on IV antibiotics over the past 48 hours?: No Sepsis Event Note (H) - Evaluation Current Stage of Sepsis: Ruled out Assessment/Plan - Problem List (1) Lower GI bleed Impression: 1. Acute symptomatic GI blood loss anemia 05/18 pt still bloody stool. pt will have colonoscopy at this afternoon, will followup. HGB first was stable, then continue drop. continue H&H, NPO until procedure done blood transfusion as needed, type screen and cross match. pt had two blood transfusion, now she is asymptomatic and walked at nurse station and hallway. her HGB is 8.8 now consult with GI surgeon, followup tomorrow colonoscopy NPO after midnight H&H 2. Acute renal insufficiency improved. today pt's creatinine is 0.8 3. Hx Crohns disease continue home meds steroid and mesalamine 4. Generalized weakness sec to above resolved. it appear from pt's anemia 5. Steroid induced hyperglycemia stable 6. Hyperthyroidism TSH is normal 7. Macrocytosis anemia study show normal B12 and folate
[2019-05-18] MEDS ORDERED: LACTATED RINGERS 1,000 ML IV ONE (17:28)
[2019-05-18] MEDS ORDERED: BENZOCAINE/TETRACAINE/BUTAMBEN 20 GM TOP ONE (18:38)
[2019-05-18] MEDS: MESALAMINE 1.2 GM PO SCH (19:46)
[2019-05-18 21:15] LABS: HGB - HEMOGLOBIN 7.4 g/dL (12.0-16.0)
[2019-05-18] MEDS: GABAPENTIN 300 MG CAPSULE PO SCH (21:47)
[2019-05-18] MEDS: AMITRIPTYLINE 10 MG TABLET PO SCH (21:48)
[2019-05-19] MEDS: DEXTROSE 5%-0.9% NACL 1,000 ML IV SCH (03:35)
[2019-05-19] MEDS: SODIUM CHLORIDE FLUSH 0.9% 10 ML SYRINGE IVP SCH ×3 (05:49→18:15)
[2019-05-19 06:10] LABS: BASOPHILS % (AUTO) 0.2 %; EOSINOPHILS % (AUTO) 0.3 %; LYMPHOCYTES # (AUTO) 0.8 10^3/uL (1.5-3.5); LYMPHOCYTES % (AUTO) 13.7 %; MEAN CORPUSCULAR HEMOGLOBIN 29.3 pg (27.0-31.0); MEAN CORPUSCULAR HGB CONC 30.9 g/dL (32.0-36.0); MEAN CORPUSCULAR VOLUME 94.8 fL (81.0-99.0); MEAN PLATELET VOLUME 9.1 fL (7.9-10.8); MONOCYTES # (AUTO) 0.4 10^3/uL (0.0-1.0); MONOCYTES % (AUTO) 6.8 %; NEUTROPHILS # (AUTO) 4.6 10^3/uL (1.5-6.6); NEUTROPHILS % (AUTO) 78.5 %; PLT - PLATELET COUNT 221 10^3/uL (130-450); RED BLOOD COUNT 2.32 10^6/uL (4.20-5.40); RED CELL DISTRIBUTION WIDTH 15.3 % (12.0-15.0); WHITE BLOOD COUNT 5.9 x10^3/uL (4.8-10.8)
[2019-05-19 06:21] LABS: CALCIUM 7.9 mg/dL (8.5-10.3); CREATININE 0.8 mg/dL (0.4-1.0)
[2019-05-19 06:56] LABS: HGB - HEMOGLOBIN 6.8 g/dL (12.0-16.0)
[2019-05-19] MEDS: PANTOPRAZOLE 40 MG VIAL IVP SCH (07:55)
[2019-05-19] MEDS: SODIUM CHLORIDE FLUSH 0.9% 10 ML SYRINGE IVP PRN (07:55)
[2019-05-19] MEDS: LEVOTHYROXINE 25 MCG TABLET PO SCH (07:55)
[2019-05-19] MEDS: POLYETHYLENE GLYCOL 3350 17 GM PACKET PO SCH (08:27)
[2019-05-19] MEDS ORDERED: SODIUM CHLORIDE 0.9% 500 ML IV ONE (08:28)
[2019-05-19] MEDS: GABAPENTIN 100 MG CAPSULE PO SCH (08:33)
[2019-05-19] MEDS: predniSONE 10 MG TABLET PO SCH ×2 (08:33→18:15)
[2019-05-19] MEDS: MESALAMINE 1.2 GM PO SCH (08:34)
[2019-05-19] MEDS ORDERED: CYANOCOBALAMIN 500 MCG TABLET PO SCH (09:00)
--- NOTE | 2019-05-19 14:54 | DISCHARGE SUMMARY ---
"Discharge Summary Discharge Date: 05/19/19 Discharging Provider: NUÑEZ Primary Care Provider: Dr. Juliana Handy Condition at Discharge: Fair Discharge Disposition: 02 Transfer Acute Care Hosp Dis[facility]: [facility] - DIAGNOSES Admission Diagnoses: 1. Acute symptomatic GI blood loss anemia 2. Acute renal insufficiency 3. Hx Crohns disease 4. Generalized weakness sec to above 5. Steroid induced hyperglycemia 6. Hyperthyroidism 7. Macrocytosis Discharge Diagnoses with Status of Each Condition: 1. Acute GI blood loss anemia pt continue to have GI bleed and bloody stool in hospital, and continue HGB drop after blood transfusion. pt had colonoscopy but unfortunately we still did not have operative report yet. Per surgeon verbally say pt has bleeding at her Crohns site. pt has Crohns disease. pt was transferred to [place] for high level care. 2. Acute renal insufficiency resolved 3. Hx Crohns disease continue home meds steroid and mesalamine 4. Generalized weakness sec to above resolved. it appear from pt's anemia 5. Steroid induced hyperglycemia stable 6. Hyperthyroidism TSH is normal 7. Macrocytosis anemia study show normal B12 and folate - HPI History of Present Illness: refer from Dr. Han's HPI on 05/16/19 63-year-old woman w/ Pmhx of Hypothyroidism, Chronic steroid use with a steroid taper for treatment Crohn's disease, followed by Dr. Joe Villa in [place]. She is currently on mesalamine and she is also on a long prednisone taper that she is been on for the last month, currently 30 mg a day. Since early this morning she had recurrent episodes of significant dark red blood per rectum without abdominal pain or nausea. Patient was admitted for a bowel obstruction in February 2019. On examination patient was hemodynamically stable, afebrile, did not complain of crampy abdominal pain, no diarrhea. Patient presented with a hemoglobin of 7.3 which on 05/10 patient's hemoglobin was 10.2 and on 03/10 hemoglobin of 14 g/dl. Patient also had mild Acute renal insuff secondary to GI losses of blood with a cr 1.0 w/ baseline cr ranging 0.7-0.9, was on all her home meds without any use of NSAIDs or ETOh use. Dr. Us from [facility] was called by ED and informed of clinical presentation and there was recommendations for observation with H/H monitoring alongside keeping same dose of 30 mg po prednisone along withe her mesalamine at 1.2 g daily. Possible diverticular bleed was entertained, for which Dr. San was called and consulted as well for possible endoscopy. - CONSULTS | PROCEDURES Consultations: GI surgeon Dr. Last Procedures: colonoscopy - HOSPITAL COURSE Hospital Course: pt was admitted for GI and weakness. pt was found to have HGB 6.2. pt had first two unit of blood transfusion , then pt had colonoscopy. There is No surgery reported yet. pt was found to have bleeding on pt's Crhons disease site. pt continue to have GI bleed with bloody stool and HGB continue drop. pt had another two unit of blood transfused. pt had total 4 unit of blood in the hospital course. Pt was transferred to [facility] for high level of care. - ALLERGIES Allergies/Adverse Reactions: Allergies Allergy/AdvReac Type Severity Reaction Status Date / Time codeine AdvReac Intermediate Nausea Verified 02/27/19 08:24 - MEDICATIONS Home Medications: Ambulatory Orders Medication Instructions Recorded Confirmed Amitriptyline [Elavil] 20 mg PO QPM 02/27/19 05/17/19 Gabapentin 100 mg PO DAILY 02/27/19 05/17/19 Gabapentin 300 mg PO QPM 02/27/19 05/17/19 Levothyroxine [Synthroid] 50 mcg PO QDAC 02/27/19 05/17/19 Mesalamine [Lialda] 4.8 gm PO DAILY 02/27/19 05/17/19 predniSONE [Prednisone] 15 mg PO BIDWM 05/17/19 05/17/19 - PHYSICAL EXAM AT DISCHARGE General Appearance: positive: No acute distress, Alert. negative: Lethargic Eyes Bilateral: positive: Normal inspection, PERRL, No lid inflammation, Conjunctivae nml ENT: positive: ENT inspection nml, Pharynx nml, No signs of dehydration. negative: Purulent nasal drainage, Pharyngeal erythema, Oral lesions Neck: positive: Nml inspection, Thyroid nml, No JVD, Trachea midline. negative: Thyromegaly, Lymphadenopathy (R), Lymphadenopathy (L), Stiff neck, Swelling/bruising, Tracheal deviation Respiratory: positive: Chest non-tender, No respiratory distress, Breath sounds nml. negative: Wheezes, Rales, Rhonchi Cardiovascular: positive: Regular rate & rhythm, No murmur, No gallop. negative: Irregularly irregular, Extrasystoles, Tachycardia, Bradycardia, JVD present, Systolic murmur, Diastolic murmur Peripheral Pulses: positive: 2+ Abdomen: positive: Non-tender, No organomegaly, Nml bowel sounds, No distention. negative: Tenderness, Guarding, Rebound Back: positive: Nml inspection. negative: CVA tenderness (R), CVA tenderness (L) Skin: positive: Color nml, No rash, Warm, Dry. negative: Cyanosis, Diaphoresis, Pallor Extremities: positive: Non-tender, Full ROM, Nml appearance. negative: Calf tenderness, Joint swelling, Myron's sign/cords Neurologic/Psychiatric: positive: Oriented x3, Motor nml, Sensation nml, Mood/affect nml. negative: Weakness, Sensory loss, Facial droop, Slurred/abnml speech, Depressed mood/affect - LABS Result Diagrams: 05/19/19 05:30 05/19/19 05:30 - SEPSIS Current Stage of Sepsis: Ruled out - FOLLOW UP Follow Up: pt was transferred to [place] for high level of care - TIME SPENT Time Spent in Discharge (Minutes): 50"
[2019-05-19 16:01] VITALS: BP 121/69
== END 2019-05-19 18:35 | disposition short-term general hospital (02) | DRG 386 ==
LOC: EDUNIT# → ED 18:45 → OBS 21:37 → OBSVTOIN 05-18 18:34
PROVIDERS: ADMIT Family Medicine; ATTEND Nurse Practitioner Gerontology
PROC: 30233N1 Transfusion of Nonautologous Red Blood Cells into Peripheral Vein, Percutaneous Approach (ICD-10-PCS; 2019-05-17)
PROC: 0DBH8ZX Excision of Cecum, Via Natural or Artificial Opening Endoscopic, Diagnostic (ICD-10-PCS; 2019-05-18)
PROC: 0DJ08ZZ Inspection of Upper Intestinal Tract, Via Natural or Artificial Opening Endoscopic (ICD-10-PCS; principal; 2019-05-18 15:30)
DX: K50.811 Crohn's disease of both small and large intestine with rectal bleeding (principal); D62 Acute posthemorrhagic anemia; N28.9 Disorder of kidney and ureter, unspecified; K64.8 Other hemorrhoids; K20.9 Esophagitis, unspecified; K44.9 Diaphragmatic hernia without obstruction or gangrene; R73.9 Hyperglycemia, unspecified; T38.0X5A Adverse effect of glucocorticoids and synthetic analogues, initial encounter; E03.9 Hypothyroidism, unspecified; Z79.1 Long term (current) use of non-steroidal anti-inflammatories (NSAID); Z90.49 Acquired absence of other specified parts of digestive tract; Z86.19 Personal history of other infectious and parasitic diseases
CPT/HCPCS: 36415; 36430; 80048; 80053; 80069; 82607; 82746; 83036; 83540; 83690; 84443; 84466; 85014; 85018; 85025; 85027; 85610; 86850; 86900; 86901; 86920; 96361; 96374; 96376; 99284; A9270; G0378; J7120; P9016; 82272

== ENCOUNTER 2019-06-25 17:30 | Emergency (ER) | payer MEDICARE, OTHER ==
[2019-06-25 17:37] VITALS: BP 149/68
--- NOTE | 2019-06-25 18:39 | XRAY Report ---
Reason: R 5th toe injury Procedure Date: 06/25/2019 Accession Number: [id number] / [id number] Procedure: XR - Toe(s) RT CPT Code: FULL RESULT: EXAM: RIGHT TOE RADIOGRAPHY EXAM DATE: 06/25/2019 06:15 PM. CLINICAL HISTORY: R 5th toe injury. COMPARISON: None. TECHNIQUE: 3 views. FINDINGS: Bones: There is a fracture of the proximal fifth proximal phalanx at the metaphysis. There is no significant displacement. Joints: No subluxation or dislocation. Soft Tissues: There is generalized soft tissue swelling of the fifth digit. IMPRESSION: Proximal phalanx fifth digit fracture RADIA
--- NOTE | 2019-06-25 18:43 | ED Physician Documentation ---
PD HPI LOWER EXT INJURY - Stated complaint Stated Complaint: RT TOE PX/INJ - Chief complaint Chief Complaint: Trauma Ext - History obtained from History obtained from: Patient, Family - History of Present Illness PD HPI LOW EXT INJURY LOCATION: Right, Toe (5th) Type of injury: Blunt / blow Where injury occurred: Home Timing - onset: How many hours ago (1) Timing - duration: Hours (1) Timing - details: Abrupt onset Pain level max: 6 Pain level now: 2 Improved by: Rest, Ice, Immobilization Worsened by: Moving, Palpating Associated symptoms: Swelling. No: Weakness, Numbness, Tingling Contributing factors: No: Anticoagulated Recently seen: Not recently seen Review of Systems Neurologic: denies: Focal weakness, Numbness PD PAST MEDICAL HISTORY - Past Medical History Cardiovascular: None Respiratory: None Neuro: Other (post herpetc neuralgia) Endocrine/Autoimmune: Other GI: Crohn's disease Psych: Other (insomnia) - Past Surgical History Past Surgical History: Yes General: Bowel surgery (small bowel resection x 2 for Crohn's) HEENT: Tonsil/Adenoidectomy - Present Medications Home Medications: Ambulatory Orders Medication Instructions Recorded Confirmed Amitriptyline [Elavil] 20 mg PO QPM 02/27/19 05/17/19 Gabapentin 100 mg PO DAILY 02/27/19 05/17/19 Gabapentin 300 mg PO QPM 02/27/19 05/17/19 Levothyroxine [Synthroid] 50 mcg PO QDAC 02/27/19 05/17/19 Mesalamine [Lialda] 4.8 gm PO DAILY 02/27/19 05/17/19 predniSONE [Prednisone] 15 mg PO BIDWM 05/17/19 05/17/19 - Allergies Allergies/Adverse Reactions: Allergies Allergy/AdvReac Type Severity Reaction Status Date / Time codeine AdvReac Intermediate Nausea Verified 06/25/19 17:35 - Social History Does the pt smoke?: No Smoking Status: Never smoker Does the pt drink ETOH?: No - Immunizations Immunizations are current?: Yes - POLST Patient has POLST: No PD ED PE NORMAL - Vitals Vital signs reviewed: Yes - General General: Alert and oriented X 3, No acute distress - Neck Neck: Supple, no meningeal sign - Derm Derm: Warm and dry - Extremities Extremities: Other (R 5th toe - mild swelling and bruising. NVI. ) - Neuro Neuro: Alert and oriented X 3 - Psych Psych: Normal mood, Normal affect Results - Vitals Vitals: Vital Signs - 24 hr 06/25/19 17:35 Temperature 36.4 C L Heart Rate 76 Respiratory 16 Rate Blood Pressure 149/68 H O2 Saturation 100 Oxygen O2 Source Room air - Rads (name of study) R toe fx Radiology: Prelim report reviewed, EMP read contemporaneously, See rad report (Proximal phalanx fifth digit fracture) PD MEDICAL DECISION MAKING - ED course Complexity details: reviewed results, re-evaluated patient, considered differential, d/w patient, d/w family ED course: 64-year-old female with a fracture of the proximal right fifth toe. No significant displacement. Elbert taped together. Placed in a postop shoe. We will follow-up with her doctor. Patient counseled regarding signs and symptoms for which I believe and urgent re-evaluation would be necessary. Patient with good understanding of and agreement to plan and is comfortable going home at this time This document was made in part using voice recognition software. While efforts are made to proofread this document, sound alike and grammatical errors may occur. Departure - Departure Disposition: 01 Home, Self Care Clinical Impression: Fracture of fifth toe, right, closed Qualifiers: Encounter type: initial encounter Qualified Code(s): S92.501A - Displaced unspecified fracture of right lesser toe(s), initial encounter for closed fracture Condition: Good Instructions: ED Fx Toe Closed Follow-Up: Juliana Handy PA-C [Primary Care Provider] - Within 1 week Comments: You can use Motrin or Tylenol as needed for pain. Return if you worsen. Use the postoperative shoe for comfort. You can elbert tape the toes as well. Discharge Date/Time: 06/25/19 19:08
== END 2019-06-25 19:08 | disposition home or self-care (01) ==
LOC: ED 17:30
DX: S92.511A Displaced fracture of proximal phalanx of right lesser toe(s), initial encounter for closed fracture (principal); X50.1XXA Overexertion from prolonged static or awkward postures, initial encounter; Y92.009 Unspecified place in unspecified non-institutional (private) residence as the place of occurrence of the external cause
CPT/HCPCS: 73660; 99282; 99283

== ENCOUNTER 2020-09-03 07:14 | Outpatient (CLI) | payer MEDICARE ==
[2020-09-03 15:09] LABS: BASOPHILS # (AUTO) 0.1 10^3/uL (0.0-0.1); BASOPHILS % (AUTO) 1.6 %; EOSINOPHILS # (AUTO) 0.2 10^3/uL (0.0-0.7); EOSINOPHILS % (AUTO) 4.6 %; HGB - HEMOGLOBIN 14.5 g/dL (12.0-16.0); LYMPHOCYTES # (AUTO) 0.7 10^3/uL (1.5-3.5); LYMPHOCYTES % (AUTO) 15.1 %; MEAN CORPUSCULAR HEMOGLOBIN 30.1 pg (27.0-31.0); MEAN CORPUSCULAR HGB CONC 31.4 g/dL (32.0-36.0); MEAN CORPUSCULAR VOLUME 95.9 fL (81.0-99.0); MEAN PLATELET VOLUME 9.3 fL (7.9-10.8); MONOCYTES # (AUTO) 0.5 10^3/uL (0.0-1.0); MONOCYTES % (AUTO) 11.1 %; NEUTROPHILS # (AUTO) 2.9 10^3/uL (1.5-6.6); NEUTROPHILS % (AUTO) 67.4 %; PLT - PLATELET COUNT 282 10^3/uL (130-450); RED BLOOD COUNT 4.82 10^6/uL (4.20-5.40); RED CELL DISTRIBUTION WIDTH 12.9 % (12.0-15.0); WHITE BLOOD COUNT 4.3 x10^3/uL (4.8-10.8)
[2020-09-03 17:10] LABS: ALBUMIN 3.5 g/dL (3.2-5.5); ALBUMIN/GLOBULIN RATIO 1.3 (1.0-2.2); ALKALINE PHOSPHATASE 84 IU/L (42-121); ALT ALANINE AMINOTRANSFERASE 20 IU/L (10-60); AST ASPARTATE AMINOTRANSFERASE 19 IU/L (10-42); BILIRUBIN,TOTAL 0.4 mg/dL (0.2-1.0); BUN - BLOOD UREA NITROGEN 19 mg/dL (6-20); CALCIUM 8.9 mg/dL (8.5-10.3); CARBON DIOXIDE - CO2 31 mmol/L (21-32); CHLORIDE 100 mmol/L (101-111); CHOL/HDL RATIO 4.4 (<4.4); CHOLESTEROL 192 mg/dL; CREATININE 0.9 mg/dL (0.4-1.0); GLUCOSE 101 mg/dL (70-100); HDL CHOLESTEROL 44 mg/dL; LDL CHOLESTEROL,CALCULATED 117 mg/dL; LDL/HDL RATIO 2.7 (<4.4); SODIUM 139 mmol/L (135-145); TOTAL PROTEIN 6.1 g/dL (6.7-8.2); VLDL CHOLESTEROL 31 mg/dL
== END 2020-09-03 07:15 | disposition home or self-care (01) ==
LOC: LAB.S 07:14
PROVIDERS: ATTEND Registered Nurse
DX: D64.9 Anemia, unspecified (principal); E61.1 Iron deficiency; D72.819 Decreased white blood cell count, unspecified; R73.01 Impaired fasting glucose; E03.9 Hypothyroidism, unspecified; K50.90 Crohn's disease, unspecified, without complications
CPT/HCPCS: 36415; 80053; 80061; 83721; 84443; 85025

== ENCOUNTER 2021-03-31 08:15 | Outpatient (CLI) | payer MEDICARE ==
--- NOTE | 2021-03-31 11:01 | DEXA Report ---
PROCEDURE: Dexa Spine and/or Hip INDICATIONS: POSTMENOPAUSAL TECHNIQUE: Dual energy x-ray absorptiometry (DXA) was performed on a [employer] System. Regions measur ed are the AP Spine, femoral neck, and if needed forearm. COMPARISON: Prior similar bone mineral density study 03/02/2019. 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 Left Hip: Bone Mineral Density 0.906 g/cm/cm,T score -0.8, normal, and this represents a 3.8% statistically in significant improvement in bone mineral density. Left Femoral Neck: Bone Mineral Density 0.928 g/cm/cm, T score -0.8, normal. (T score greater or equal to -1.0: NORMAL) (T score from -1.1 to -2.4: OSTEOPENIA) (T score less than or equal to -2.5 to: OSTEOPOROSIS) Impression: Normal bone mineral density, without statistically significant change from the prior stud y 03/02/2019. Patients with diagnosis of osteoporosis or osteopenia should have regular bone mineral density assess ment. For those eligible for Medicare, routine testing is allowed once every 2 years. Testing frequ ency can be increased for patients who have rapidly progressing disease or for those who are receivin g medical therapy to restore bone mass. Reviewed by: Tristen Wilkins MD on 03/31/2021 11:00 AM PDT Approved by: Tristen Wilkins MD on 03/31/2021 11:00 AM PDT Station ID: [id number]
== END 2021-03-31 08:16 | disposition home or self-care (01) ==
LOC: DI 08:15
PROVIDERS: ATTEND Registered Nurse
DX: Z78.0 Asymptomatic menopausal state (principal)

== ENCOUNTER 2021-09-08 09:22 | Outpatient (CLI) | payer MEDICARE ==
[2021-09-08 14:10] LABS: BASOPHILS # (AUTO) 0.1 10^3/uL (0.0-0.1); BASOPHILS % (AUTO) 1.2 %; EOSINOPHILS # (AUTO) 0.1 10^3/uL (0.0-0.7); EOSINOPHILS % (AUTO) 2.4 %; HCT - HEMATOCRIT 45.4 % (37.0-47.0); HGB - HEMOGLOBIN 14.2 g/dL (12.0-16.0); LYMPHOCYTES % (AUTO) 20.1 %; MEAN CORPUSCULAR HEMOGLOBIN 29.6 pg (27.0-31.0); MEAN CORPUSCULAR HGB CONC 31.3 g/dL (32.0-36.0); MEAN CORPUSCULAR VOLUME 94.6 fL (81.0-99.0); MEAN PLATELET VOLUME 9.5 fL (7.9-10.8); MONOCYTES # (AUTO) 0.6 10^3/uL (0.0-1.0); MONOCYTES % (AUTO) 11.2 %; NEUTROPHILS # (AUTO) 3.2 10^3/uL (1.5-6.6); NEUTROPHILS % (AUTO) 64.7 %; PLT - PLATELET COUNT 282 10^3/uL (130-450); RED CELL DISTRIBUTION WIDTH 13.8 % (12.0-15.0); WHITE BLOOD COUNT 4.9 x10^3/uL (4.8-10.8)
[2021-09-08 14:52] LABS: ALBUMIN 3.5 g/dL (3.2-5.5); ALBUMIN/GLOBULIN RATIO 1.3 (1.0-2.2); ALKALINE PHOSPHATASE 88 IU/L (42-121); ALT ALANINE AMINOTRANSFERASE 19 IU/L (10-60); AST ASPARTATE AMINOTRANSFERASE 16 IU/L (10-42); BILIRUBIN,TOTAL 0.7 mg/dL (0.2-1.0); BUN - BLOOD UREA NITROGEN 20 mg/dL (6-20); CALCIUM 8.8 mg/dL (8.5-10.3); CARBON DIOXIDE - CO2 30 mmol/L (21-32); CHLORIDE 100 mmol/L (101-111); CHOL/HDL RATIO 4.4 (<4.4); CHOLESTEROL 239 mg/dL; CREATININE 0.9 mg/dL (0.4-1.0); GFR - MDRD 62 (>89); GLUCOSE 95 mg/dL (70-100); HDL CHOLESTEROL 54 mg/dL; LDL CHOLESTEROL,CALCULATED 161 mg/dL; POTASSIUM 3.9 mmol/L (3.5-5.0); SODIUM 139 mmol/L (135-145); TOTAL PROTEIN 6.1 g/dL (6.7-8.2); TRIGLYCERIDES 118 mg/dL; VLDL CHOLESTEROL 24 mg/dL
[2021-09-08 15:05] LABS: THYROID STIMULATING HORMONE 4.11 uIU/mL (0.34-5.60)
== END 2021-09-08 09:23 | disposition home or self-care (01) ==
LOC: LAB.S 09:22
PROVIDERS: ATTEND Registered Nurse
DX: E03.9 Hypothyroidism, unspecified (principal); R73.01 Impaired fasting glucose; E61.1 Iron deficiency
CPT/HCPCS: 36415; 80053; 80061; 83721; 84443; 85025

== ENCOUNTER 2022-09-17 12:34 | Outpatient (CLI) | payer MEDICARE | END 2022-09-17 12:35 | disposition home or self-care (01) | LOC: LAB.S 12:34 | PROVIDERS: ATTEND Registered Nurse | DX: K50.90 Crohn's disease, unspecified, without complications (principal) | CPT/HCPCS: 82306 ==

== ENCOUNTER 2023-10-25 09:43 | Outpatient (CLI) | payer MEDICARE ==
[2023-10-25 14:36] LABS: BASOPHILS # (AUTO) 0.1 10^3/uL (0.0-0.1); BASOPHILS % (AUTO) 1.2 %; EOSINOPHILS # (AUTO) 0.2 10^3/uL (0.0-0.7); EOSINOPHILS % (AUTO) 3.4 %; HCT - HEMATOCRIT 47.4 % (37.0-47.0); HGB - HEMOGLOBIN 14.7 g/dL (12.0-16.0); LYMPHOCYTES # (AUTO) 0.8 10^3/uL (1.5-3.5); LYMPHOCYTES % (AUTO) 16.3 %; MEAN CORPUSCULAR HEMOGLOBIN 28.9 pg (27.0-31.0); MEAN CORPUSCULAR VOLUME 93.3 fL (81.0-99.0); MEAN PLATELET VOLUME 8.8 fL (7.9-10.8); MONOCYTES # (AUTO) 0.6 10^3/uL (0.0-1.0); MONOCYTES % (AUTO) 11.1 %; NEUTROPHILS # (AUTO) 3.4 10^3/uL (1.5-6.6); NEUTROPHILS % (AUTO) 67.8 %; PLT - PLATELET COUNT 316 10^3/uL (130-450); RED BLOOD COUNT 5.08 10^6/uL (4.20-5.40); RED CELL DISTRIBUTION WIDTH 12.9 % (12.0-15.0)
[2023-10-25 15:19] LABS: ALBUMIN 3.7 g/dL (3.2-5.5); ALBUMIN/GLOBULIN RATIO 1.6 (1.0-2.2); ALKALINE PHOSPHATASE 122 IU/L (42-121); ALT ALANINE AMINOTRANSFERASE 18 IU/L (10-60); AST ASPARTATE AMINOTRANSFERASE 20 IU/L (10-42); BILIRUBIN,TOTAL 0.4 mg/dL (0.2-1.0); BUN - BLOOD UREA NITROGEN 18 mg/dL (6-20); CARBON DIOXIDE - CO2 33 mmol/L (21-32); CHLORIDE 103 mmol/L (101-111); CHOL/HDL RATIO 5.3 (<4.4); CHOLESTEROL 232 mg/dL; CREATININE 0.9 mg/dL (0.6-1.3); GFR - MDRD 62 (>89); GLUCOSE 118 mg/dL (74-104); HDL CHOLESTEROL 44 mg/dL; LDL CHOLESTEROL,CALCULATED 156 mg/dL; LDL/HDL RATIO 3.5 (<4.4); POTASSIUM 4.1 mmol/L (3.5-4.5); SODIUM 140 mmol/L (135-145); TRIGLYCERIDES 158 mg/dL (48-352); VLDL CHOLESTEROL 32 mg/dL
== END 2023-10-25 09:44 | disposition home or self-care (01) ==
LOC: LAB.S 09:43
PROVIDERS: ATTEND Registered Nurse
DX: K50.812 Crohn's disease of both small and large intestine with intestinal obstruction (principal); Z79.899 Other long term (current) drug therapy; R73.01 Impaired fasting glucose; Z13.220 Encounter for screening for lipoid disorders; E03.9 Hypothyroidism, unspecified; R19.7 Diarrhea, unspecified
CPT/HCPCS: 36415; 80053; 80061; 83721; 83993; 84439; 84443; 85025; 85651; 86140